=== PATIENT | female | born 1975 | race Two or more races ===

== ENCOUNTER 2017-02-19 01:36 | Emergency (ER) | END 2017-02-19 04:30 | disposition left against medical advice (07) | LOC: M ED 01:36 | DX: Z71.1 Person with feared health complaint in whom no diagnosis is made (principal); Z53.21 Procedure and treatment not carried out due to patient leaving prior to being seen by health care provider ==

== ENCOUNTER 2017-02-22 08:02 | Emergency (ER) | payer BC ==
[~2017-02-22] VITALS: Ht 165.1 cm; Wt 140.9 kg
[2017-02-22] MEDS ORDERED: DULO1CAP2 PO (08:23)
[2017-02-22] MEDS ORDERED: AUGM875T28 PO (08:23)
[2017-02-22] MEDS ORDERED: METO25TA4 PO (08:23)
[2017-02-22] MEDS ORDERED: VITA1TAB27 PO (08:23)
[2017-02-22] MEDS ORDERED: LEVA750T7 PO (09:04)
[2017-02-22 09:11] VITALS: BP 146/97
[2017-02-22] MEDS ORDERED: LevoFLOXacin 750 MG TABLET PO ONE (09:15)
--- NOTE | 2017-02-22 09:17 | REP ---
TWO VIEW CHEST: Two views of the chest are performed without prior studies for comparison. There is fairly dense infiltrate in the right middle lobe. The left lung is clear. Heart is upper limits of normal in size. There are multiple sternal wires present. There are mild degenerative changes of the spine. IMPRESSION: Right middle lobe infiltrate. Signed by Huy Robert MD 02/23/2017 04:21 P
== END 2017-02-22 09:16 | disposition home or self-care (01) ==
LOC: M ED 08:02
DX: J18.1 Lobar pneumonia, unspecified organism (principal); J01.90 Acute sinusitis, unspecified; I10 Essential (primary) hypertension; F41.9 Anxiety disorder, unspecified; Z79.899 Other long term (current) drug therapy; Z88.5 Allergy status to narcotic agent; Z88.2 Allergy status to sulfonamides

== ENCOUNTER 2017-02-25 15:55 | Inpatient (IN) | payer BC ==
[~2017-02-25] VITALS: Ht 165.1 cm; Wt 128.9 kg
[~2017-02-25 15:55] MED LIST: AUGM875T28 PO; DULO1CAP2 PO; LEVA750T7 PO; METO25TA4 PO; VITA1TAB27 PO
[2017-02-25] MEDS ORDERED: MOTR200T44 PO (16:13)
[2017-02-25] MEDS ORDERED: TESS100C PO (16:13)
[2017-02-25] MEDS ORDERED: ALBUTEROL SULFATE 2.5 MG/0.5 ML INH NEB SOLN NEB ONE (16:30)
[2017-02-25] MEDS ORDERED: methylPREDNISolone INJ 125 MG/2 ML VIAL (J2930) IV ONE (16:30)
[2017-02-25] MEDS ORDERED: NS 1,000 ML IV ONE (16:30)
[2017-02-25] MEDS ORDERED: MAGIC MOUTHWASH SUSPENSION BTL SS ONE (16:30)
[2017-02-25 17:27] LABS: BASO % 0.2 % (0.0-1.0); IMMATURE GRANULOCYTE % 0.3 % (0-0); LYMPH # 1.2 10^3/uL (1.5-4.5); MEAN CORPUSCULAR HEMOGLOBIN 30.4 pg (27.0-33.0); MEAN CORPUSCULAR HGB CONC 34.1 g/dl (32.0-36.5); MEAN CORPUSCULAR VOLUME 89.1 fl (80.0-96.0); MONO # 0.3 10^3/uL (0.0-0.8); MONO % 4.7 % (0.0-5.0); NEUTROPHILS # 4.4 10^3/uL (1.8-7.7); NEUTROPHILS % 73.8 % (36.0-66.0); PLATELET COUNT, AUTOMATED 224 10^3/uL (150-450); RED CELL DISTRIBUTION WIDTH 13.3 % (11.5-14.5); WHITE BLOOD COUNT 5.9 10^3/uL (4.0-10.0)
[2017-02-25] MEDS ORDERED: IPRATROPIUM 0.5MG/ALBUTEROL 2.5MG INH SOL UD 3ML (DUONEB)(J7620) NEB ONE (18:00)
--- NOTE | 2017-02-25 18:02 | REP ---
CHEST, TWO VIEWS: Two views of the chest are performed. There is consolidative right middle lobe infiltrate which has worsened since the prior study of 02/22/2017. The left lung remains clear. No other acute changes are seen. IMPRESSION: Increased right middle lobe infiltrate. Unreviewed
[2017-02-25] MEDS ORDERED: PIPERACILLIN/TAZOBACTAM SOD 3.375 GM in D5W 50 ML IV ONE (19:30)
[2017-02-25] MEDS ORDERED: cefTRIAXone SOD 2 GM in D5W 50 ML IV ONE (19:30)
[2017-02-25] MEDS ORDERED: BENZONATATE 100 MG CAP PO ONE (19:45)
[2017-02-25 19:57] LABS: ANION GAP 10 MEQ/L (8-16); BLOOD UREA NITROGEN 6 MG/DL (7-18); CALCIUM LEVEL 7.8 MG/DL (8.5-10.1); CARBON DIOXIDE LEVEL 24 MEQ/L (21-32); CHLORIDE LEVEL 104 MEQ/L (98-107); CREATININE FOR GFR 0.73 MG/DL (0.55-1.02); GLOMERULAR FILTRATION RATE > 60.0 (>58); GLUCOSE, FASTING 127 MG/DL (70-105); SODIUM LEVEL 138 MEQ/L (136-145)
[2017-02-25] MEDS ORDERED: KETOROLAC 30 MG/ML VIAL (J1885) IV ONE (20:00)
[2017-02-25] MEDS ORDERED: ACETAMINOPHEN 325 MG TAB PO ONE (20:00)
[2017-02-25 20:22] LABS: POTASSIUM SERUM 2.9 MEQ/L (3.5-5.1)
[2017-02-25] MEDS ORDERED: DRIS50002 PO (20:24)
[2017-02-25] MEDS ORDERED: LEVA750T7 PO (20:24)
[2017-02-25] MEDS ORDERED: POTASSIUM CHLORIDE INJ 10 MEQ in D5W/0.2% SODIUM CHLORIDE 1,000 ML IV SCH (20:45)
[2017-02-25] MEDS ORDERED: POTASSIUM CHLORIDE 10 MEQ SR TABLET PO ONE (20:45)
[2017-02-25 22:06] LABS: ALBUMIN 3.2 GM/DL (3.2-5.2); ALKALINE PHOSPHATASE 113 U/L (45-117); ALT/SGPT 33 U/L (12-78); AST/SGOT 36 U/L (7-37); BILIRUBIN,DIRECT 0.2 MG/DL (0.0-0.2); BILIRUBIN,TOTAL 0.4 MG/DL (0.2-1.0); MAGNESIUM LEVEL 1.8 MG/DL (1.8-2.4); TOTAL PROTEIN 7.2 GM/DL (6.4-8.2)
[2017-02-25] MEDS ORDERED: ACETAMINOPHEN TAB 650MG DOSE (2X325MG) PO PRN (22:15)
[2017-02-25] MEDS ORDERED: ONDANSETRON 4MG/2ML VIAL (J2405) IV PRN (22:15)
[2017-02-25 22:46] VITALS: BP 121/98
--- NOTE | 2017-02-25 23:45 | HPE ---
DATE OF ADMISSION: 02/25/2017 ATTENDING DOCTOR: Dr. Jones TIME PATIENT WAS SEEN: At around 10:00 p.m. PRIMARY CARE PROVIDER: It was going to be Dr. Chandler; however, she has not seen her yet. Her first visit will be on 03/02/2017. CHIEF COMPLAINT: Fever and chills with nausea, vomiting, diarrhea and shortness of breath, chest pain. HISTORY OF THE PRESENT ILLNESS: A 42-year-old female with a past medical history of chest mass, status post removal of the mass, and it was benign back in June 2016, hypertension with tachycardia after the surgery, severe vitamin D deficiency - on supplement, also morbid obesity, presented with cough with fever and chills, and also nausea, vomiting and diarrhea. As per patient, everything started roughly 1 week ago. She just feels generally not well. She went to urgent care roughly 6 days ago and received Augmentin, and the patient took Augmentin for 2 days, did not get better and she also has nausea, vomiting and diarrhea with it, which she always does with any type of antibiotic. Due to feeling worse, she went to the emergency room this time on Tuesday and the emergency room gave her levofloxacin, and she still did not feel better. And on Tuesday, she went to urgent care and received Tessalon Perles. However, her fever persisted, and she has been taking ibuprofen continuously. She also admits to some chest pain, more on the right side, increased shortness of breath and also nausea, vomiting and diarrhea. The only thing she has been eating for the past few days were bananas, and in addition, she stated that her daughter and her son also were sick recently and developed bronchitis. Otherwise, she admits to increased urination. However, no burning on urination, no blood in the urine. Denies any blood in the vomitus or diarrhea. Admits to some sputum production; however, it was white. Admits to some wheezing and some swelling in her neck. Also, the patient stated that she felt like her throat might be swollen, and she has some sore throat as well. Otherwise, she denies any recent traveling. She is, however, a nurse working at the emergency room. Denies any swelling of the lower extremities. ALLERGIES: Patient is allergic to CODEINE and SULFA ANTIBIOTICS. HOME MEDICATIONS: - Tessalon Perles 100 mg one tablet by mouth three times a day as needed - duloxetine 30 mg one tablet by mouth daily - ibuprofen 800 mg one tablet by mouth as needed - levofloxacin 750 mg one tablet by mouth daily - metoprolol 25 mg one tablet by mouth twice a day - vitamin D 50,000 units one per weekly PAST MEDICAL HISTORY: Morbid obesity. History of benign chest mass, status post removal back in June of 2016. Hypertension with tachycardia. Vitamin D deficiency. Pneumonia with pleural effusion right before the chest mass was found. PAST SURGICAL HISTORY: Chest mass removal back in June of 2016. SOCIAL HISTORY: The patient is an emergency room (ER) nurse. Denies any smoking, drinking or recreational drug use. FAMILY HISTORY: Denies. REVIEW OF SYSTEMS: The patient admits to roughly 10 pounds weight loss over 1 week due to the severe nausea, vomiting and diarrhea with antibiotic. Otherwise, the patient denies any recent traveling. Admits to sick contact. Admits to fever and chills. HEENT: Denies any changes with vision, smell, hearing or taste. CARDIOVASCULAR: Denies any swelling in the lower extremities. Admits to chest pain on the right side and also shortness of breath. Admits to palpitations. PULMONARY: Denies any chronic obstructive pulmonary disease (COPD). However, the patient does have a swollen neck and also a cough and sore throat, and also she heard wheezing from her neck. GASTROINTESTINAL: Denies any abdominal pain. Admits to nausea, vomiting and also diarrhea, nonbloody, nonbilious. GENITOURINARY: Admits to increased urination. Denies any blood in the urine or burning on urination. MUSCULOSKELETAL: Denies any pain anywhere. ENDOCRINE: Admits to feeling hot all the time. Denies any chills. Admits to palpitations and also severe sweating. HEMATOLOGY/ONCOLOGY: Patient does have a history of chest tumor, which was benign. Denies any ease of bruising, any bleeding anywhere. However, the patient does have a weight loss of 10 pounds over 1 week due to nausea, vomiting, diarrhea. NEUROLOGICAL: Denies any weakness on any side of her body, any numbness or tingling. PSYCHIATRIC: Denies any anxiety/depression. The patient, however, does have a history of anxiety, which is controlled. PHYSICAL EXAMINATION: VITAL SIGNS: Temperature 101.4, pulse 101, respirations 18, blood pressure 143/67, oxygen was saturating at 93% on room air. GENERAL: The patient is a morbidly obese middle-aged female who looks younger than her age, who is alert, awake, oriented times three, does not appear to be in distress, lying comfortably in bed with the head elevated at 30 degrees. HEENT: Normocephalic, atraumatic. extraocular motors intact. Mucosal moist. NECK: Supple. The patient does have a swollen neck. Thyroid was not palpable, however. CARDIOVASCULAR: Tachycardic, normal S1, S2. No murmurs. LUNGS: Clear to auscultation bilaterally. ABDOMEN: Positive bowel sounds, soft, nontender, nondistended. No peritoneal signs. No ecchymosis. EXTREMITIES: No edema, clubbing or cyanosis. SKIN: Warm and dry. NEUROLOGICAL: Cranial nerves II-XII intact. No focal neurologic deficit. LABORATORY DATA: WBC 5.9, hemoglobin 13.7, hematocrit 40.3 with a platelet count of 224. Sodium 138, potassium 2.9, chloride 104, bicarbonate 24, anion gap was 10, BUN 6 , creatinine 0.73, GFR greater than 60, fasting glucose 127, lactic acid 1.1, calcium 7.8. Liver panel is currently pending. Magnesium is pending. The patient has blood culture ordered times two, result pending. Influenza screening was negative for influenza. Patient had a PA and lateral chest x-ray in the emergency room; it shows increased right middle lobe infiltrate. ASSESSMENT AND PLAN: A 42-year-old female with a past medical history of morbid obesity, chest mass which was benign, hypertension, tachycardic, vitamin D deficiency, presented with: 1. Increased shortness of breath with chest pain. Likely secondary to community-acquired pneumonia that has failed outpatient therapy. Patient's PA and lateral chest x-ray shows a right middle lobe infiltrate. The patient did receive Augmentin and levofloxacin outpatient, and the patient stated that she has increased nausea, vomiting, diarrhea from antibiotic. Therefore, possibly she has a poor absorption from the diarrhea, therefore, which could have delayed her recovery. Otherwise, will continue the patient on Rocephin 2 mg IV every 24 hours as well as azithromycin 500 mg IV every 24 hours and continue to monitor the patient. The patient has been started on Acapella, also a small dose of IV steroid, Solu-Medrol 60 mg every 12 hours due to patient had wheezing and a swollen neck. 2. Morbid obesity. Continue to monitor, which complicates care. 3. Swollen neck. Possibly related to her illness, possibly viral superimposed on bacterial pneumonia. In addition, this could represent an allergic reaction from her oral antibiotic as well. However, at this point, we could not confirm if she does have allergy due to she has no rash and the oral antibiotic has been stopped. 4. Hypokalemia with a potassium of 2.9. Continue supplementation with both IV and oral potassium. The patient did receive oral potassium 40 mEq in the emergency room as well as IV potassium. Will continue to monitor and will start the patient on 20 mEq of potassium in normal saline drip and continue to monitor. 5. Hot flashes for 1 year with palpitations and severe sweating. Suspicious for thyroid disorder versus pheochromocytoma. Thyroid-stimulating hormone (TSH) has been ordered, metanephrine plasma has been ordered and will followup. 6. History of benign chest mass. Status post resection in June 2016. Currently no issues. Continue to monitor. 7. Hypertension. The patient is only on metoprolol at home. Possibly will start the patient on amlodipine. Will continue to monitor closely for now. 8. History of anxiety. Continue home duloxetine and continue to monitor. 9. Vitamin D deficiency. Continue supplementation. 10. Deep vein thrombosis (DVT) prophylaxis with thromboembolism deterrents (TEDs ) and sequential compression devices (SCDs), as well as subcutaneous heparin. 11. Fluids, electrolytes and nutrition. Patient has been started on K 20 D5 half normal at a rate of 80 mL per hour due to patient has nausea and has poor oral tolerance. Will start the patient on a clear liquid diet and continue to monitor the patient's electrolytes with a morning basic metabolic panel. DISPOSITION: The patient does have community-acquired pneumonia, failed outpatient treatment with Augmentin and levofloxacin. The patient did receive Rocephin, also azithromycin in the emergency room. At this point, due to the patient's delayed recovery, likely secondary to severe diarrhea for the past 1 week, will start the patient with Rocephin and azithromycin at this point and continue to monitor the patient symptomatically. The patient does not have a white count when she first came in and she did have a fever, and also she had a negative lactic acid of only 1.1. Will continue to monitor the patient. The patient has been discussed with attending doctor, Dr. Jones. My preceptor for this patient encounter was Dr. Jones. The preceptor was physically present in the building during the encounter and was fully available. As needed, all aspects of the patient interview, examination, medical decision making process, and medical care plan development were reviewed and approved by the preceptor. The preceptor is aware and concurs with the plan as stated in the body of this note and will attest to such by his/her co-signature. Attending Note: I have independently examined this patient and all aspects of the exam and treatment decisions have been discussed with the resident. A member of the hospitalist staff will continue to follow this patient through discharge. GOOD
[2017-02-25] MEDS: METOPROLOL TART 25 MG TABLET PO SCH (23:52)
[2017-02-25] MEDS: HEPARIN SOD (PORCINE) 5000 UNITS/ML VIAL SC SCH (23:53)
[2017-02-25] MEDS: AZITHROMYCIN INJ 500 MG, VIAL MATE ADAPTER 1 EACH in D5W 250 ML IV SCH (23:53)
[2017-02-25] MEDS: KCL 20MEQ IN D5/0.45NS 1000ML 1,000 ML IV SCH (23:54)
[2017-02-26] MEDS ORDERED: methylPREDNISolone INJ 125 MG/2 ML VIAL (J2930) IV SCH (05:00)
[2017-02-26] MEDS: HEPARIN SOD (PORCINE) 5000 UNITS/ML VIAL SC SCH ×3 (05:12→21:37)
[2017-02-26 06:00] VITALS: BP 142/97
[2017-02-26 06:53] LABS: IMMATURE GRANULOCYTE % 0.5 % (0-0); LYMPH # 0.6 10^3/uL (1.5-4.5); LYMPH % 14.7 % (24.0-44.0); MEAN CORPUSCULAR HEMOGLOBIN 30.6 pg (27.0-33.0); MEAN CORPUSCULAR HGB CONC 34.5 g/dl (32.0-36.5); MEAN CORPUSCULAR VOLUME 88.7 fl (80.0-96.0); MONO # 0.1 10^3/uL (0.0-0.8); MONO % 2.2 % (0.0-5.0); NEUTROPHILS # 3.4 10^3/uL (1.8-7.7); NEUTROPHILS % 82.6 % (36.0-66.0); PLATELET COUNT, AUTOMATED 221 10^3/uL (150-450); RED CELL DISTRIBUTION WIDTH 13.2 % (11.5-14.5); WHITE BLOOD COUNT 4.1 10^3/uL (4.0-10.0)
[2017-02-26 07:12] LABS: ANION GAP 6 MEQ/L (8-16); BLOOD UREA NITROGEN 6 MG/DL (7-18); CARBON DIOXIDE LEVEL 27 MEQ/L (21-32); CHLORIDE LEVEL 105 MEQ/L (98-107); CREATININE FOR GFR 0.61 MG/DL (0.55-1.02); GLOMERULAR FILTRATION RATE > 60.0 (>58); GLUCOSE, FASTING 169 MG/DL (70-105); MAGNESIUM LEVEL 2.1 MG/DL (1.8-2.4); POTASSIUM SERUM 3.3 MEQ/L (3.5-5.1); SODIUM LEVEL 138 MEQ/L (136-145)
[2017-02-26] MEDS ORDERED: POTASSIUM CHLORIDE 10 MEQ SR TABLET PO ONE (08:00)
[2017-02-26] MEDS: DULoxetine 30 MG CAP (CYMBALTA) PO SCH (08:39)
[2017-02-26] MEDS: METOPROLOL TART 25 MG TABLET PO SCH ×2 (08:43→20:27)
[2017-02-26] MEDS: KCL 20MEQ IN D5/0.45NS 1000ML 1,000 ML IV SCH (11:57)
[2017-02-26 14:00] VITALS: BP 154/94
--- NOTE | 2017-02-26 15:12 | IPNPDOC ---
Text Note Date of Service The patient was seen on 02/26/17. NOTE Subjective: Patient is a 42 year old female with a PMHx of Chest benign mass s/p resection (06/2016), HTN, Morbid obesity and Vitamin D deficiency who presented to the ER with a cough and fever with chills for 1 week duration. Patient failed to improve with Augmentin PO as an outpatient. She was admitted for CAP. Patient was seen and examined at the bedside. Currently she notes that there is some mild chest pain with coughing, described as sharp. Objective: Vitals (See below) General: Lying in bed, no acute distress, comfortable, AAOx3 HEENT: NC, AT CVS: RRR, +S1S2 Lungs: Fair air entry b/l, no appreciable wheezing / rales / rhonchi Abdomen: Soft, ND, NT Extremities: - Edema, - Calf tenderness Assessment and plan: Dyspnea - likely 2/2 community acquired pneumonia, less likely 2/2 suspected COPD - Presented with SOB, productive cough, fever and chills - Physical without any significant findings - Labs without leukocytosis or lactic acidosis - Influenza negative; Blood cultures 02/05: pending, Sputum cultures 02/26: pending - CXR 02/25: increased right middle lobe infiltrate - Currently on Solumedrol 60 IV q12h; will taper down today - c/w Ceftriaxone and Azithromycin (Day #2) Chest pain - likely 2/2 pleuritic etiology - Atypical chest pain, pleuritic description - Troponin negative Morbid obesity - complicating medical care Reported swollen neck - no evidence of physical this morning - no evidence of stridor Hypokalemia - c/w supplement Hot flashes - Thyroid function normal - Workup for pheochromocytoma pending; Plasma metanephrine and Normetanephrine pending Benign chest mass - s/p resection 06/2016 HTN - BP moderately controlled - c/w Metoprolol tartrate Anxiety - c/w Duloxetine Vitamin D deficiency - c/w Supplement DVT prophylaxis - c/w SCDs and Heparin VS,Fishbone, I+O VS, Fishbone, I+O Laboratory Tests 02/25/17 17:01 Red Blood Count 4.51, Mean Corpuscular Volume 89.1, Mean Corpuscular Hemoglobin 30.4, Mean Corpuscular Hemoglobin Concent 34.1, Red Cell Distribution Width 13.3 , Neutrophils (%) (Auto) 73.8 H, Lymphocytes (%) (Auto) 21.0 L, Monocytes (%) ( Auto) 4.7, Eosinophils (%) (Auto) 0.0, Basophils (%) (Auto) 0.2, Neutrophils # ( Auto) 4.4, Lymphocytes # (Auto) 1.2 L, Monocytes # (Auto) 0.3, Eosinophils # ( Auto) 0.0, Basophils # (Auto) 0.0 02/25/17 19:30 Calcium Level 7.8 L 02/26/17 06:36 Red Blood Count 4.08, Mean Corpuscular Volume 88.7, Mean Corpuscular Hemoglobin 30.6, Mean Corpuscular Hemoglobin Concent 34.5, Red Cell Distribution Width 13.2 , Neutrophils (%) (Auto) 82.6 H, Lymphocytes (%) (Auto) 14.7 L, Monocytes (%) ( Auto) 2.2, Eosinophils (%) (Auto) 0.0, Basophils (%) (Auto) 0.0, Neutrophils # ( Auto) 3.4, Lymphocytes # (Auto) 0.6 L, Monocytes # (Auto) 0.1, Eosinophils # ( Auto) 0.0, Basophils # (Auto) 0.0, Calcium Level 8.0 L Vital Signs Date Time Temp Pulse Resp B/P (MAP) Pulse Ox O2 Delivery O2 Flow Rate FiO2 02/26/17 08:43 85 173/90 02/26/17 06:00 98.2 23 85 Room Air I&O- Last 24 Hours up to 6 AM 02/27/17 06:00 Intake Total 720 ml Balance 720 ml CY QUINONES MD Feb 26, 2017 15:12
[2017-02-26] MEDS: methylPREDNISolone INJ 40 MG/1 ML VIAL (J2920) IV SCH (16:28)
[2017-02-26] MEDS: cefTRIAXone SOD 2 GM in D5W 50 ML IV SCH (20:27)
[2017-02-26] MEDS: AZITHROMYCIN INJ 500 MG, VIAL MATE ADAPTER 1 EACH in D5W 250 ML IV SCH (21:36)
[2017-02-26] MEDS: BENZONATATE 100 MG CAP PO PRN (21:36)
[2017-02-26 22:00] VITALS: BP 138/68
[2017-02-26] MEDS ORDERED: ALBUTEROL SULFATE 2.5 MG/0.5 ML INH NEB SOLN NEB PRN (23:30)
[2017-02-26] MEDS: IPRATROPIUM 0.5MG/ALBUTEROL 2.5MG INH SOL UD 3ML (DUONEB)(J7620) NEB SCH (23:58)
[2017-02-27] MEDS: KCL 20MEQ IN D5/0.45NS 1000ML 1,000 ML IV SCH (00:36)
[2017-02-27] MEDS: methylPREDNISolone INJ 40 MG/1 ML VIAL (J2920) IV SCH (05:10)
[2017-02-27] MEDS: HEPARIN SOD (PORCINE) 5000 UNITS/ML VIAL SC SCH ×3 (05:11→22:18)
[2017-02-27 06:00] VITALS: BP 138/86
[2017-02-27 06:44] LABS: IMMATURE GRANULOCYTE % 0.3 % (0-0); LYMPH # 1.2 10^3/uL (1.5-4.5); LYMPH % 15.8 % (24.0-44.0); MEAN CORPUSCULAR HEMOGLOBIN 30.4 pg (27.0-33.0); MEAN CORPUSCULAR HGB CONC 33.7 g/dl (32.0-36.5); MEAN CORPUSCULAR VOLUME 90.3 fl (80.0-96.0); MONO # 0.7 10^3/uL (0.0-0.8); MONO % 10.1 % (0.0-5.0); NEUTROPHILS # 5.4 10^3/uL (1.8-7.7); NEUTROPHILS % 73.8 % (36.0-66.0); PLATELET COUNT, AUTOMATED 252 10^3/uL (150-450); RED CELL DISTRIBUTION WIDTH 13.2 % (11.5-14.5); WHITE BLOOD COUNT 7.3 10^3/uL (4.0-10.0)
[2017-02-27 07:07] LABS: ANION GAP 7 MEQ/L (8-16); BLOOD UREA NITROGEN 7 MG/DL (7-18); CALCIUM LEVEL 8.1 MG/DL (8.5-10.1); CARBON DIOXIDE LEVEL 28 MEQ/L (21-32); CHLORIDE LEVEL 106 MEQ/L (98-107); CREATININE FOR GFR 0.58 MG/DL (0.55-1.02); GLOMERULAR FILTRATION RATE > 60.0 (>58); GLUCOSE, FASTING 158 MG/DL (70-105); MAGNESIUM LEVEL 2.1 MG/DL (1.8-2.4); POTASSIUM SERUM 3.4 MEQ/L (3.5-5.1); SODIUM LEVEL 141 MEQ/L (136-145)
[2017-02-27] MEDS: IPRATROPIUM 0.5MG/ALBUTEROL 2.5MG INH SOL UD 3ML (DUONEB)(J7620) NEB SCH ×4 (07:53→20:00)
[2017-02-27] MEDS ORDERED: POTASSIUM CHLORIDE 10 MEQ SR TABLET PO ONE (08:00)
[2017-02-27] MEDS: METOPROLOL TART 25 MG TABLET PO SCH ×2 (08:12→21:09)
[2017-02-27] MEDS: DULoxetine 30 MG CAP (CYMBALTA) PO SCH (08:12)
[2017-02-27] MEDS ORDERED: ISOVUE-370 76% 100ML VIAL (Q9967) As Ordered ONE (08:47)
[2017-02-27] MEDS: BENZONATATE 100 MG CAP PO PRN ×2 (09:35→21:09)
--- NOTE | 2017-02-27 12:30 | IPNPDOC ---
Text Note Date of Service The patient was seen on 02/27/17. NOTE Subjective: Patient is a 42 year old female with a PMHx of Chest benign mass s/p resection (06/2016), HTN, Morbid obesity and Vitamin D deficiency who presented to the ER with a cough and fever with chills for 1 week duration. Patient failed to improve with Augmentin PO as an outpatient. She was admitted for CAP. Patient was seen and examined at the bedside. Currently she notes that she is feeling fine, without any breathing difficulty. Denies any productive cough or fever. Objective: Vitals (See below) General: Lying in bed, no acute distress, comfortable, AAOx3 HEENT: NC, AT CVS: RRR, +S1S2 Lungs: Fair air entry b/l, no appreciable wheezing / rales / rhonchi Abdomen: Soft, ND, NT Extremities: - Edema, - Calf tenderness Assessment and plan: Dyspnea - likely 2/2 community acquired pneumonia, less likely 2/2 suspected COPD - Presented with SOB, productive cough, fever and chills - Physical without any significant findings - Labs without leukocytosis or lactic acidosis - Influenza negative; Blood cultures 02/05: negative at 24 hours , Sputum cultures 02/26: pending - CXR 02/25: increased right middle lobe infiltrate - Will start Prednisone today; s/p Solumedrol - c/w Ceftriaxone and Azithromycin (Day #3) Noted some neck thickening and possible difficulty getting air in - no signs of respiratory compromise - saturating well without any evidence of stridor - Will get CT Neck with contrast to evaluate Chest pain - likely 2/2 pleuritic etiology - Atypical chest pain, pleuritic description - Troponin negative Morbid obesity - complicating medical care Reported swollen neck - no evidence of physical this morning - no evidence of stridor Hypokalemia - c/w supplement Hot flashes - Thyroid function normal - Workup for pheochromocytoma pending; Plasma metanephrine and Normetanephrine pending Benign chest mass - s/p resection 06/2016 HTN - BP moderately controlled - c/w Metoprolol tartrate Anxiety - c/w Duloxetine Vitamin D deficiency - c/w Supplement DVT prophylaxis - c/w SCDs and Heparin VS,Fishbone, I+O VS, Fishbone, I+O Laboratory Tests 02/27/17 06:30 Red Blood Count 4.11, Mean Corpuscular Volume 90.3, Mean Corpuscular Hemoglobin 30.4, Mean Corpuscular Hemoglobin Concent 33.7, Red Cell Distribution Width 13.2 , Neutrophils (%) (Auto) 73.8 H, Lymphocytes (%) (Auto) 15.8 L, Monocytes (%) ( Auto) 10.1 H, Eosinophils (%) (Auto) 0.0, Basophils (%) (Auto) 0.0, Neutrophils # (Auto) 5.4, Lymphocytes # (Auto) 1.2 L, Monocytes # (Auto) 0.7, Eosinophils # (Auto) 0.0, Basophils # (Auto) 0.0, Calcium Level 8.1 L Vital Signs Date Time Temp Pulse Resp B/P (MAP) Pulse Ox O2 Delivery O2 Flow Rate FiO2 02/27/17 08:12 79 138/86 02/27/17 08:00 Room Air 02/27/17 06:00 98.4 18 95 I&O- Last 24 Hours up to 6 AM 02/28/17 06:00 Intake Total 540 ml Balance 540 ml CY QUINONES MD Feb 27, 2017 12:30
[2017-02-27 14:00] VITALS: BP 143/84
--- NOTE | 2017-02-27 14:31 | REP ---
CT neck with IV contrast: History: Soft tissue swelling below the chin. CT contrast dose: 75 ml of intravenous Isovue 370. Findings: There is a 2.4 cm mucous retention cyst along the floor of the left maxillary sinus. Otherwise, the paranasal sinuses are clear as visualized. No intraorbital lesion is seen. Parotid and submandibular glands are normal and symmetric. Thyroid lobes are unremarkable. There is no evidence of infrahyoid or suprahyoid neck adenopathy. No cyst or mass is seen. No vascular abnormality is observed. Deep facial soft tissues are unremarkable. Tonsillar and peritonsillar soft tissues are normal. No glottic or subglottic airway lesion is seen. The lung apices are clear. No bony destructive lesion. The bottom most cut shows what appears to be a sternotomy wire. Impression: 2.4 cm mucous retention cyst in the floor the left maxillary sinus. Otherwise unremarkable CT of the neck soft tissues. No evidence of abscess, inflammation, mass or adenopathy. Signed by Mika Ahumada MD 02/27/2017 10:49 A
[2017-02-27] MEDS: predniSONE 20 MG TAB PO SCH (21:09)
[2017-02-27] MEDS: cefTRIAXone SOD 2 GM in D5W 50 ML IV SCH (21:10)
[2017-02-27 22:00] VITALS: BP 152/80
[2017-02-27] MEDS: AZITHROMYCIN INJ 500 MG, VIAL MATE ADAPTER 1 EACH in D5W 250 ML IV SCH (22:17)
[2017-02-28 06:00] VITALS: BP 148/52
[2017-02-28] MEDS: HEPARIN SOD (PORCINE) 5000 UNITS/ML VIAL SC SCH (06:19)
[2017-02-28 06:43] LABS: MEAN CORPUSCULAR HEMOGLOBIN 30.2 pg (27.0-33.0); MEAN CORPUSCULAR HGB CONC 33.9 g/dl (32.0-36.5); MEAN CORPUSCULAR VOLUME 89.3 fl (80.0-96.0); PLATELET COUNT, AUTOMATED 245 10^3/uL (150-450); RED CELL DISTRIBUTION WIDTH 13.3 % (11.5-14.5)
[2017-02-28 06:46] LABS: ADD MANUAL DIFFER YES; DIFF SLIDE NUMBER 33; POSITIVE MORPH POS FLAG
[2017-02-28 07:02] LABS: ANION GAP 6 MEQ/L (8-16); BLOOD UREA NITROGEN 7 MG/DL (7-18); CALCIUM LEVEL 8.3 MG/DL (8.5-10.1); CARBON DIOXIDE LEVEL 31 MEQ/L (21-32); CHLORIDE LEVEL 104 MEQ/L (98-107); CREATININE FOR GFR 0.57 MG/DL (0.55-1.02); GLOMERULAR FILTRATION RATE > 60.0 (>58); GLUCOSE, FASTING 126 MG/DL (70-105); HYPOCHROMASIA 1+; MAGNESIUM LEVEL 2.3 MG/DL (1.8-2.4); POTASSIUM SERUM 3.6 MEQ/L (3.5-5.1); SODIUM LEVEL 141 MEQ/L (136-145)
[2017-02-28] MEDS: IPRATROPIUM 0.5MG/ALBUTEROL 2.5MG INH SOL UD 3ML (DUONEB)(J7620) NEB SCH (07:25)
[2017-02-28] MEDS: BENZONATATE 100 MG CAP PO PRN (07:36)
[2017-02-28] MEDS: DULoxetine 30 MG CAP (CYMBALTA) PO SCH (08:39)
[2017-02-28] MEDS: predniSONE 20 MG TAB PO SCH (08:40)
[2017-02-28 08:41] VITALS: BP 160/98
[2017-02-28] MEDS: METOPROLOL TART 25 MG TABLET PO SCH (08:41)
[2017-02-28 08:48] VITALS: BP 160/98
[2017-02-28] MEDS ORDERED: AZIT500T2 PO (10:02)
[2017-02-28] MEDS ORDERED: PRED10TA2 PO (10:02)
[2017-02-28] MEDS ORDERED: CEFD1CAP8 PO (10:02)
[2017-03-01] MEDS ORDERED: VITAMIN D 50,000 UNITS CAPSULE (ERGOCALCIFEROL 1.25MG) PO SCH (09:00)
--- NOTE | 2017-03-01 09:01 | DSES ---
DATE OF ADMISSION: 02/25/2017 DATE OF DISCHARGE: 02/28/2017 ATTENDING PHYSICIAN: Fab Wynne MD PRIMARY CARE PHYSICIAN: [facility], to be established on 03/02/2017. REFERRING PHYSICIAN: None. CONSULTING PHYSICIAN: None. CONDITION ON DISCHARGE: Stable. FINAL DIAGNOSIS: Community acquired pneumonia. PROCEDURES: None. HISTORY OF PRESENT ILLNESS: The patient is a 42-year-old female with a past medical history of benign chest mass status post resection in June 2016 , hypertension, morbid obesity, and vitamin D deficiency, who presented to the emergency room (ER) with a cough and fever and chills for 1-week duration. Patient failed to improve with Augmentin by mouth as an outpatient. She was admitted for community acquired pneumonia. HOSPITAL COURSE: 1. Dyspnea, likely secondary to community acquired pneumonia, less likely secondary to chronic obstructive pulmonary disease (COPD). Presented with shortness of breath, productive cough, fever, and chills. Physical without any significant changes. Labs without leukocytosis or lactic acidosis, Blood cultures of 02/05/2017 have been negative after 48 hours. Sputum cultures on 02/26/2017 remain pending. Chest x-ray on 02/25/2017 revealed an increased right middle lobe infiltrate. Patient was put on Solu-Medrol initially and has been transitioned to prednisone. She has been doing well on prednisone. I will continue on a tapering basis. She has been put on ceftriaxone and azithromycin for 3 days' duration. She will be transitioned to cefdinir as well as azithromycin for completion of antibiotic course. 2. Noted some neck thickening and possible difficulty getting in air; however, with subjective no signs of respiratory compromise. Physical did not reveal any signs of stridor. CT neck was acquired, which did not reveal any signs of respiratory compromise. CT neck on 02/27/2017 revealed 2.4 cm mucus retention cyst in the floor of the left maxillary sinus. Otherwise, unremarkable CT scan of the neck soft tissues. No evidence of abscess, inflammation, mass, or adenopathy. 3. Chest pain, likely secondary to pleuritic etiology, atypical chest pain, pleuritic description. Troponin has been negative. 4. Morbid obesity, complicating medical care. 5. Reported neck swelling. See above. 6. Hypokalemia. Status post supplementation. 7. Hot flashes. Thyroid function has been within normal limits. Workup for pheochromocytoma has remained pending, will have outpatient followup 8. Benign chest mass status post resection in June 2016. 9. Hypertension. Blood pressure moderately controlled. Continue with metoprolol tartrate. 10. Anxiety. Continue with duloxetine. 11. Vitamin D deficiency. Continue with supplementation. 12. Deep venous thrombosis (DVT) prophylaxis. Continue with sleeve compression devices and heparin. DISCHARGE MEDICATION: Patient is being discharged home with the following medication list: - azithromycin 500 mg by mouth daily - cefdinir 300 mg by mouth twice a day (Antibiotics to be taken on duration as directed.) - prednisone 10 mg to be taken as directed on tapering basis - Tessalon Perles 100 mg by mouth three times a day as needed cough - duloxetine 30 mg by mouth daily - metoprolol 25 mg by mouth twice a day - vitamin D 30,000 units by mouth once a week DISCHARGE INSTRUCTIONS: Patient has been advised to followup with her primary care provider within the next 7 days. She has been advised to remain compliant with treatment plan and medications and return to the emergency room if she experiences any problems. TIME SPENT ON DISCHARGE: Greater than 35 minutes. MTDD
== END 2017-02-28 11:00 | disposition home or self-care (01) | DRG 139 ==
LOC: M ED 15:55 → M ED INP 20:45 → M MS5PR 22:32
PROVIDERS: ADMIT Hospitalist; ATTEND Internal Medicine
DX: J15.9 Unspecified bacterial pneumonia (principal); Z68.42 Body mass index [BMI] 45.0-49.9, adult; I10 Essential (primary) hypertension; E66.01 Morbid (severe) obesity due to excess calories; E87.6 Hypokalemia; Z88.5 Allergy status to narcotic agent; Z88.2 Allergy status to sulfonamides; Z79.899 Other long term (current) drug therapy; F41.9 Anxiety disorder, unspecified

== ENCOUNTER → 2017-04-06 | Outpatient (REF) | payer BC ==
[~2017-04-06] MED LIST changes: +AZIT500T2 PO; +CEFD1CAP8 PO; +DRIS50002 PO; +MOTR200T44 PO; +PRED10TA2 PO; +TESS100C PO
[2017-04-06 13:44] LABS: ALBUMIN 3.5 GM/DL (3.2-5.2); ALBUMIN/GLOBULIN RATIO 0.92 (1.00-1.93); ALKALINE PHOSPHATASE 121 U/L (45-117); ALT/SGPT 31 U/L (12-78); ANION GAP 8 MEQ/L (8-16); AST/SGOT 16 U/L (7-37); BILIRUBIN,TOTAL 0.5 MG/DL (0.2-1.0); BLOOD UREA NITROGEN 12 MG/DL (7-18); CALCIUM LEVEL 8.6 MG/DL (8.5-10.1); CARBON DIOXIDE LEVEL 30 MEQ/L (21-32); CHLORIDE LEVEL 104 MEQ/L (98-107); CREATININE FOR GFR 0.78 MG/DL (0.55-1.02); GLOMERULAR FILTRATION RATE > 60.0 (>58); GLUCOSE, FASTING 78 MG/DL (70-105); POTASSIUM SERUM 4.3 MEQ/L (3.5-5.1); SODIUM LEVEL 142 MEQ/L (136-145); TOTAL PROTEIN 7.3 GM/DL (6.4-8.2)
== END ==
LOC: M SFHCADAM 07:35
PROVIDERS: ATTEND Family Medicine
DX: R73.01 Impaired fasting glucose (principal)

== ENCOUNTER → 2018-02-06 | Outpatient (REF) | payer BC | LOC: M LAB REF 18:14 | DX: D23.39 Other benign neoplasm of skin of other parts of face (principal) | CPT/HCPCS: 88305 ==

== ENCOUNTER → 2018-03-03 | Outpatient (REF) | payer BC ==
[2018-03-03 19:42] LABS: ALBUMIN 3.6 GM/DL (3.2-5.2); ALBUMIN/GLOBULIN RATIO 1.03 (1.00-1.93); ALKALINE PHOSPHATASE 112 U/L (45-117); ALT/SGPT 35 U/L (12-78); ANION GAP 6 MEQ/L (8-16); AST/SGOT 18 U/L (7-37); BILIRUBIN,TOTAL 0.4 MG/DL (0.2-1.0); BLOOD UREA NITROGEN 16 MG/DL (7-18); CALCIUM LEVEL 9.1 MG/DL (8.5-10.1); CARBON DIOXIDE LEVEL 29 MEQ/L (21-32); CHLORIDE LEVEL 103 MEQ/L (98-107); CREATININE FOR GFR 0.79 MG/DL (0.55-1.30); GLOMERULAR FILTRATION RATE > 60.0 (>58); GLUCOSE, FASTING 102 MG/DL (70-100); POTASSIUM SERUM 4.4 MEQ/L (3.5-5.1); SODIUM LEVEL 138 MEQ/L (136-145); TOTAL PROTEIN 7.1 GM/DL (6.4-8.2)
== END ==
LOC: M LABDRWAD 19:12
DX: M54.5 Low back pain (principal)
CPT/HCPCS: 80053

== ENCOUNTER → 2018-03-03 | Outpatient (CLI) | payer BC | LOC: M ADAMS 16:22 | DX: M54.5 Low back pain (principal) | CPT/HCPCS: 72100 ==

== ENCOUNTER 2018-03-30 07:36 | Outpatient (RCR) | payer BC | END 2018-03-31 | LOC: M PT 07:36 | DX: M54.5 Low back pain (principal) ==

== ENCOUNTER → 2018-08-08 | Outpatient (CLI) | payer BC, OTHER ==
[~2018-08-08] MED LIST changes: -DRIS50002 PO; +DRIS50003 PO
--- NOTE | 2018-08-09 03:33 | REP ---
Clinical: Right shoulder contusion . Technique: Internal rotation, external rotation, and Y view right shoulder . Findings: No acute fracture or dislocation. Mild spurring and cortical irregularity at the acromioclavicular joint is appreciated. The subacromial space is normal. The glenohumeral joint appears intact and normal. No periarticular calcifications. Surrounding soft tissues are unremarkable. Impression: Mild degenerative changes at the acromioclavicular joint. Electronically Signed by Be Sam MD 08/09/2018 03:24 A
== END ==
LOC: M ADAMS 12:54
PROVIDERS: ATTEND Physician Assistant Medical
DX: S40.011A Contusion of right shoulder, initial encounter (principal); X58.XXXA Exposure to other specified factors, initial encounter; Y92.89 Other specified places as the place of occurrence of the external cause

== ENCOUNTER 2018-09-01 23:07 | Emergency (ER) | payer BC, OTHER ==
[~2018-09-01] VITALS: Ht 165.1 cm; Wt 131.8 kg
[2018-09-01] MEDS ORDERED: AMOX500C PO (23:32)
[2018-09-02 00:09] LABS: BASO % 0.4 % (0.0-1.0); EOS # 0.2 10^3/uL (0.0-0.50); EOS % 2.2 % (0.0-3.0); HEMATOCRIT 42.4 % (36.0-47.0); HEMOGLOBIN 14.1 g/dl (12.0-15.5); LYMPH % 42.5 % (24.0-44.0); MEAN CORPUSCULAR HEMOGLOBIN 30.3 pg (27.0-33.0); MEAN CORPUSCULAR HGB CONC 33.3 g/dl (32.0-36.5); MEAN CORPUSCULAR VOLUME 91.2 fl (80.0-96.0); MONO # 0.6 10^3/uL (0.0-0.8); MONO % 6.8 % (0.0-5.0); NEUTROPHILS # 4.5 10^3/uL (1.8-7.7); NEUTROPHILS % 47.8 % (36.0-66.0); PLATELET COUNT, AUTOMATED 300 10^3/uL (150-450); RED BLOOD COUNT 4.65 10^6/uL (4.00-5.40); WHITE BLOOD COUNT 9.5 10^3/uL (4.0-10.0)
[2018-09-02 00:26] LABS: BLOOD UREA NITROGEN 21 MG/DL (7-18); CALCIUM LEVEL 8.6 MG/DL (8.5-10.1); CARBON DIOXIDE LEVEL 29 MEQ/L (21-32); CHLORIDE LEVEL 103 MEQ/L (98-107); CREATININE FOR GFR 0.91 MG/DL (0.55-1.30); GLOMERULAR FILTRATION RATE > 60.0 (>58); GLUCOSE, FASTING 86 MG/DL (70-100); POTASSIUM SERUM 4.2 MEQ/L (3.5-5.1); SODIUM LEVEL 138 MEQ/L (136-145)
[2018-09-02] MEDS ORDERED: ISOVUE-370 76% 100ML VIAL (Q9967) As Ordered ONE (03:26)
--- NOTE | 2018-09-02 04:25 | REPVR ---
EXAM: CT Angiography Chest With Contrast EXAM DATE/TIME: 09/02/2018 3:17 AM CLINICAL HISTORY: 43 years old, female; Pain and signs and symptoms; Cough; Chest pain; Type not specified; Additional info: Chest pain, SOB, cough TECHNIQUE: Imaging protocol: Axial computed tomographic angiography images of the chest with intravenous contrast using CT angiography protocol. Coronal and sagittal reformatted images were created and reviewed. 3D rendering: MIP reconstructed images were created and reviewed. Radiation optimization: All CT scans at this facility use at least one of these dose optimization techniques: automated exposure control; mA and/or kV adjustment per patient size (includes targeted exams where dose is matched to clinical indication); or iterative reconstruction. Contrast material: ISO; Contrast volume: 75 ml; Contrast route: AC; COMPARISON: CR Chest, 2 view PA, Lat 09/01/2018 11:47 PM FINDINGS: Pulmonary arteries: The main pulmonary artery measures 22 mm. No pulmonary embolism is identified. Aorta: The ascending thoracic aorta measures 27 mm. Lungs: Minimal bilateral lower lobe dependent atelectasis. Pleural space: Normal. No pneumothorax. No pleural effusion. Heart: Normal. No cardiomegaly. No pericardial effusion. Lymph nodes: Unremarkable. No enlarged lymph nodes. Bones/joints: Status post sternotomy. Soft tissues: Unremarkable. IMPRESSION: 1. Status post sternotomy. 2. Negative CTA chest. No pulmonary embolism is identified. Electronically signed by: True Self On 09/02/2018 04:25:14 AM
[2018-09-02 04:58] VITALS: BP 123/56
--- NOTE | 2018-09-02 14:25 | REP ---
CHEST, TWO VIEWS: Two views of the chest are performed and compared to a prior study of 02/25/2017. Multiple sternal wires are present. I see no acute infiltrate. Heart is not significantly enlarged. Mediastinal silhouette is unremarkable. There are mild degenerative changes of the spine. IMPRESSION: No acute pulmonary disease. Electronically Signed by Huy Robert MD 09/02/2018 03:56 P
== END 2018-09-02 06:43 | disposition home or self-care (01) ==
LOC: M ED 23:07
DX: R05 Cough (principal); I10 Essential (primary) hypertension; M54.5 Low back pain; Z88.2 Allergy status to sulfonamides; Z88.5 Allergy status to narcotic agent; Z79.899 Other long term (current) drug therapy; Z79.2 Long term (current) use of antibiotics
CPT/HCPCS: 36415; 71046; 71275; 80048; 85025; 87040; 87486; 87581; 87633; 87798; 99284; Q9967

== ENCOUNTER → 2019-01-23 | Outpatient (REF) | payer BC ==
[~2019-01-23] MED LIST changes: +AMOX500C PO; -DULO1CAP2 PO; +DULO1CAP5 PO
[2019-01-23 19:23] LABS: ALBUMIN 3.4 GM/DL (3.2-5.2); ALT/SGPT 20 U/L (12-78); BILIRUBIN,TOTAL 0.5 MG/DL (0.2-1.0); BLOOD UREA NITROGEN 14 MG/DL (7-18); CALCIUM LEVEL 8.6 MG/DL (8.5-10.1); CARBON DIOXIDE LEVEL 27 MEQ/L (21-32); CHLORIDE LEVEL 102 MEQ/L (98-107); CHOLESTEROL LEVEL 163 MG/DL (<200); CHOLESTEROL RISK RATIO 3.975 (<5); CREATININE FOR GFR 0.84 MG/DL (0.55-1.30); GLOMERULAR FILTRATION RATE > 60.0 (>58); GLUCOSE, FASTING 82 MG/DL (70-100); HDL CHOLESTEROL 41 MG/DL (>40); LDL CHOLESTEROL 89 MG/DL (<100); NON-HDL-C 122 MG/DL; POTASSIUM SERUM 4.5 MEQ/L (3.5-5.1); SODIUM LEVEL 139 MEQ/L (136-145); TOTAL PROTEIN 7.3 GM/DL (6.4-8.2); TRIGLYCERIDES LEVEL 164 MG/DL (<150)
[2019-01-23 19:24] LABS: TOTAL 25(OH) VITAMIN D 34.3 NG/ML (30.0-100.0)
[2019-01-23 19:29] LABS: BASO # 0.1 10^3/uL (0.0-0.2); BASO % 0.7 % (0.0-1.0); EOS # 0.2 10^3/uL (0.0-0.5); EOS % 2.5 % (0.0-3.0); HEMATOCRIT 41.5 % (36.0-47.0); HEMOGLOBIN 13.6 g/dl (12.0-15.5); LYMPH # 2.7 10^3/uL (1.5-5.0); LYMPH % 32.2 % (24.0-44.0); MEAN CORPUSCULAR HEMOGLOBIN 31.3 pg (27.0-33.0); MEAN CORPUSCULAR HGB CONC 32.8 g/dl (32.0-36.5); MEAN CORPUSCULAR VOLUME 95.4 fl (80.0-96.0); MONO # 0.6 10^3/uL (0.0-0.8); MONO % 6.5 % (0.0-5.0); NEUTROPHILS # 4.9 10^3/uL (1.5-8.5); NEUTROPHILS % 57.9 % (36.0-66.0); PLATELET COUNT, AUTOMATED 287 10^3/uL (150-450); RED BLOOD COUNT 4.35 10^6/uL (4.00-5.40); WHITE BLOOD COUNT 8.4 10^3/uL (4.0-10.0)
== END ==
LOC: M SFHCADAM 15:12
PROVIDERS: ATTEND Physician Assistant Medical
DX: I10 Essential (primary) hypertension (principal); E55.9 Vitamin D deficiency, unspecified

== ENCOUNTER → 2019-03-20 | Outpatient (REF) | payer BC ==
[~2019-03-20] MED LIST changes: -AZIT500T2 PO; +AZIT500T5 PO
== END ==
LOC: M LAB REF 17:38
PROVIDERS: ATTEND Dermatology
DX: D23.60 Other benign neoplasm of skin of unspecified upper limb, including shoulder (principal)

== ENCOUNTER → 2019-04-12 | Outpatient (CLI) | payer BC ==
--- NOTE | 2019-04-12 13:20 | REPPI ---
Two-view chest: 04/12/2019. Indication: Dyspnea. Comparison: 09/01/2018. Findings: The patient is status post median sternotomy. Mild cardiomegaly is present. No air space consolidation is present. There is no pleural effusion or pneumothorax. Impression: No acute cardiopulmonary process. Electronically Signed by Estrada Fishman DO 04/12/2019 01:11 P
== END ==
LOC: M PLAIMG 11:05
PROVIDERS: ATTEND Physician Assistant Medical
DX: R06.02 Shortness of breath (principal)

== ENCOUNTER → 2019-04-12 | Outpatient (CLI) | payer BC ==
[~2019-04-12] MED LIST changes: +ISOVUE-370 76% 100ML VIAL (Q9967) As Ordered ONE
--- NOTE | 2019-04-12 12:50 | REP ---
CT pulmonary angiogram: With IV contrast. History: Shortness of breath Comparison studies: September 02, 2018 Contrast dose: 75 mL of Isovue [address] technique: Helical scanning is acquired and overlapping 1.5 mm and contiguous 3 mm axial images are reformatted. In addition, maximum intensity projection and multiplanar re-formation images are generated in sagittal and coronal imaging projections. CT pulmonary angiographic findings: Digital preliminary silver plater radiograph demonstrates median sternotomy wires. There is good opacification in the pulmonary arterial tree. There is no vessel cutoff or filling defect to suggest pulmonary embolus. Thoracic aorta shows no evidence of aneurysm or dissection. Maximum intensity projection images show no vascular abnormality. There is no evidence of pleural or pericardial effusion. The heart is somewhat prominent unchanged. No pulmonary nodule or mass lesion is observed. There is mild diffuse fatty infiltration of the liver. No adrenal lesion is seen. The visualized upper abdominal structures are otherwise unremarkable. No bony destructive lesion. Impression: No CT evidence of pulmonary embolus. Mildly prominent heart otherwise negative. Prior sternotomy. Electronically Signed by Mika Ahumada MD 04/12/2019 01:11 P
== END ==
LOC: M RAD 11:32
PROVIDERS: ATTEND Physician Assistant Medical
DX: R06.02 Shortness of breath (principal)
CPT/HCPCS: 71275; Q9967

== ENCOUNTER → 2019-05-07 | Outpatient (REF) | payer BC ==
[~2019-05-07] MED LIST changes: -ISOVUE-370 76% 100ML VIAL (Q9967) As Ordered ONE
[2019-05-07 12:02] LABS: ALBUMIN 3.6 GM/DL (3.2-5.2); ALT/SGPT 35 U/L (12-78); BILIRUBIN,TOTAL 0.5 MG/DL (0.2-1.0); BLOOD UREA NITROGEN 14 MG/DL (7-18); CALCIUM LEVEL 8.6 MG/DL (8.5-10.1); CARBON DIOXIDE LEVEL 26 MEQ/L (21-32); CHLORIDE LEVEL 105 MEQ/L (98-107); CREATININE FOR GFR 0.82 MG/DL (0.55-1.30); GLOMERULAR FILTRATION RATE > 60.0 (>58); GLUCOSE, FASTING 93 MG/DL (70-100); NT-PRO BNP 687 PG/ML (<125); POTASSIUM SERUM 4.1 MEQ/L (3.5-5.1); SODIUM LEVEL 142 MEQ/L (136-145); TOTAL PROTEIN 7.4 GM/DL (6.4-8.2)
== END ==
LOC: M SFHCPLAZ 08:47
PROVIDERS: ATTEND Physician Assistant Medical
DX: I50.9 Heart failure, unspecified (principal)

== ENCOUNTER → 2019-05-31 | Outpatient (CLI) | payer BC ==
--- NOTE | 2019-06-01 08:13 | ECHO ---
DATE OF PROCEDURE: 05/31/2019 REFERRING PHYSICIAN: МАРИНА Flanagan INDICATION: Essential hypertension, congestive heart failure. HEIGHT: 163 cm WEIGHT: 132 kg DIMENSIONS: IVS: 1.1 cm LV: 4.4 cm LVPW: 0.9 cm LA: 4.0 cm Aorta: 2.6 cm IVC: 1.5 cm E wave velocity 86, A wave 50, E prime septal 13.3, and E prime lateral 14.1. FINDINGS: The study is of very limited technical quality corresponding to patient's habitus. The patient is in sinus rhythm. Left ventricle is normal size and overall probably normal systolic function based on poor visualization. Right ventricle also appears grossly normal size and contractility, but visualization was poor. Both atria appear normal. Limited views of aortic, mitral, and tricuspid valves reveal no significant abnormalities. No pericardial effusion is noted. Inferior vena cava is normal size and collapses with respiration indicative of normal central venous pressure. Aortic root is normal. Aortic arch was not well seen. Abdominal aorta appears normal. DOPPLER INTERROGATION: There is no aortic stenosis or insufficiency. Same applies for mitral valve. There is trace tricuspid insufficiency. Calculated pulmonary artery pressure is within normal limits. Evaluation of diastolic function based on mitral inflow pattern and tissue Doppler imaging of mitral annulus reveals normal diastolic function. CONCLUSIONS: 1. Patient is in sinus rhythm, the study is of poor technical quality corresponding to patient's body habitus. 2. Normal LV size with likely normal systolic and diastolic function. 3. No significant valvular disease. 4. Normal central venous pressure and normal pulmonary artery pressure. COMMENTS: Subacute bacterial endocarditis (SBE) prophylaxis is not recommended. Considering technical difficulties of the study probably normal echocardiogram.
== END ==
LOC: M CARPUL 16:41
PROVIDERS: ATTEND Physician Assistant Medical
DX: I10 Essential (primary) hypertension (principal)

== ENCOUNTER → 2019-06-21 | Outpatient (REF) | payer BC ==
[2019-06-21 13:23] LABS: BLOOD UREA NITROGEN 11 MG/DL (7-18); CALCIUM LEVEL 8.4 MG/DL (8.5-10.1); CARBON DIOXIDE LEVEL 28 MEQ/L (21-32); CHLORIDE LEVEL 105 MEQ/L (98-107); CREATININE FOR GFR 0.81 MG/DL (0.55-1.30); GLOMERULAR FILTRATION RATE > 60.0 (>58); GLUCOSE, FASTING 102 MG/DL (70-100); POTASSIUM SERUM 4.3 MEQ/L (3.5-5.1); SODIUM LEVEL 138 MEQ/L (136-145)
== END ==
LOC: M SFHCPLAZ 11:10
PROVIDERS: ATTEND Physician Assistant Medical
DX: I50.9 Heart failure, unspecified (principal)

== ENCOUNTER → 2019-10-01 | Outpatient (REF) | payer BC ==
[2019-10-01 13:24] LABS: BASO # 0.1 10^3/uL (0.0-0.2); BASO % 0.5 % (0.0-1.0); EOS # 0.2 10^3/uL (0.0-0.5); EOS % 2.1 % (0.0-3.0); HEMATOCRIT 38.4 % (36.0-47.0); HEMOGLOBIN 12.5 g/dl (12.0-15.5); LYMPH # 2.6 10^3/uL (1.5-5.0); LYMPH % 24.4 % (24.0-44.0); MEAN CORPUSCULAR HEMOGLOBIN 30.6 pg (27.0-33.0); MEAN CORPUSCULAR HGB CONC 32.6 g/dl (32.0-36.5); MEAN CORPUSCULAR VOLUME 94.1 fl (80.0-96.0); MONO # 0.7 10^3/uL (0.0-0.8); MONO % 6.1 % (0.0-5.0); NEUTROPHILS # 7.2 10^3/uL (1.5-8.5); NEUTROPHILS % 66.5 % (36.0-66.0); PLATELET COUNT, AUTOMATED 253 10^3/uL (150-450); RED BLOOD COUNT 4.08 10^6/uL (4.00-5.40); WHITE BLOOD COUNT 10.8 10^3/uL (4.0-10.0)
[2019-10-01 13:43] LABS: HEMOGLOBIN A1c 5.8 %
[2019-10-01 13:57] LABS: ALBUMIN 3.3 GM/DL (3.2-5.2); ALT/SGPT 36 U/L (12-78); BILIRUBIN,TOTAL 0.4 MG/DL (0.2-1.0); BLOOD UREA NITROGEN 13 MG/DL (7-18); CALCIUM LEVEL 8.6 MG/DL (8.5-10.1); CARBON DIOXIDE LEVEL 31 MEQ/L (21-32); CHLORIDE LEVEL 103 MEQ/L (98-107); CREATININE FOR GFR 0.76 MG/DL (0.55-1.30); GLOMERULAR FILTRATION RATE > 60.0 (>58); GLUCOSE, FASTING 104 MG/DL (70-100); NT-PRO BNP 469 PG/ML (<125); POTASSIUM SERUM 4.5 MEQ/L (3.5-5.1); SODIUM LEVEL 138 MEQ/L (136-145)
== END ==
LOC: M SFHCPLAZ 10:30
PROVIDERS: ATTEND Physician Assistant Medical
DX: I11.0 Hypertensive heart disease with heart failure (principal); I50.9 Heart failure, unspecified; Z68.43 Body mass index [BMI] 50.0-59.9, adult

== ENCOUNTER → 2019-11-13 | Outpatient (CLI) | payer BC ==
[~2019-11-13] MED LIST changes: +ATOR1TAB19 PO; +CETI10TA PO; +FURO40TA2 PO; +MELO7.5T35 PO; +TOPI25TA10 PO; +VITA50005 PO
[2019-11-13 12:06] LABS: ALBUMIN 3.2 GM/DL (3.2-5.2); ALT/SGPT 34 U/L (12-78); BILIRUBIN,TOTAL 0.3 MG/DL (0.2-1.0); BLOOD UREA NITROGEN 12 MG/DL (7-18); CALCIUM LEVEL 8.5 MG/DL (8.5-10.1); CARBON DIOXIDE LEVEL 25 MEQ/L (21-32); CHLORIDE LEVEL 107 MEQ/L (98-107); CHOLESTEROL LEVEL 200 MG/DL (<200); CHOLESTEROL RISK RATIO 5.263 (<5); CREATININE FOR GFR 0.87 MG/DL (0.55-1.30); GLOMERULAR FILTRATION RATE > 60.0 (>58); GLUCOSE, FASTING 107 MG/DL (70-100); HDL CHOLESTEROL 38 MG/DL (>40); LDL CHOLESTEROL 125 MG/DL (<100); NON-HDL-C 162 MG/DL; NT-PRO BNP 472 PG/ML (<125); POTASSIUM SERUM 4.3 MEQ/L (3.5-5.1); SODIUM LEVEL 140 MEQ/L (136-145); TOTAL PROTEIN 6.9 GM/DL (6.4-8.2); TRIGLYCERIDES LEVEL 183 MG/DL (<150)
== END ==
LOC: M PLALAB 09:03
PROVIDERS: ATTEND Physician Assistant Medical
DX: Z13.220 Encounter for screening for lipoid disorders (principal); I10 Essential (primary) hypertension

== ENCOUNTER → 2020-01-30 | Outpatient (CLI) | payer BC ==
[2020-01-30 15:42] LABS: HEMOGLOBIN A1c 5.8 %
[2020-01-30 16:03] LABS: ALBUMIN 3.7 GM/DL (3.2-5.2); BILIRUBIN,DIRECT 0.2 MG/DL (0.0-0.2); BILIRUBIN,TOTAL 0.7 MG/DL (0.2-1.0); TOTAL PROTEIN 7.6 GM/DL (6.4-8.2)
== END ==
LOC: M PLALAB 13:20
PROVIDERS: ATTEND Physician Assistant Medical
DX: I50.9 Heart failure, unspecified (principal); E66.01 Morbid (severe) obesity due to excess calories; E78.00 Pure hypercholesterolemia, unspecified; R73.01 Impaired fasting glucose

== ENCOUNTER 2020-02-25 22:44 | Inpatient (IN) | payer BC ==
[~2020-02-25] VITALS: Ht 165.1 cm; Wt 136.1 kg
[~2020-02-25 22:44] MED LIST changes: -ATOR1TAB19 PO; -CETI10TA PO; -FURO40TA2 PO; -MELO7.5T35 PO; -TOPI25TA10 PO; -VITA50005 PO
[2020-02-25] MEDS ORDERED: ATOR1TAB19 PO (22:54)
[2020-02-25] MEDS ORDERED: TOPI25TA10 PO (22:54)
[2020-02-25] MEDS ORDERED: MELO7.5T35 PO (22:54)
[2020-02-25] MEDS ORDERED: FURO40TA2 PO (22:54)
[2020-02-26 00:21] LABS: BASO % 0.5 % (0.0-1.0); EOS # 0.2 10^3/uL (0.0-0.5); EOS % 2.3 % (0.0-3.0); HEMATOCRIT 40.4 % (36.0-47.0); HEMOGLOBIN 13.5 g/dl (12.0-15.5); LYMPH # 2.8 10^3/uL (1.5-5.0); LYMPH % 33.8 % (24.0-44.0); MEAN CORPUSCULAR HGB CONC 33.4 g/dl (32.0-36.5); MEAN CORPUSCULAR VOLUME 92.9 fl (80.0-96.0); MONO # 0.5 10^3/uL (0.0-0.8); MONO % 6.5 % (0.0-5.0); NEUTROPHILS # 4.7 10^3/uL (1.5-8.5); NEUTROPHILS % 56.2 % (36.0-66.0); PLATELET COUNT, AUTOMATED 247 10^3/uL (150-450); RED BLOOD COUNT 4.35 10^6/uL (4.00-5.40); WHITE BLOOD COUNT 8.3 10^3/uL (4.0-10.0)
[2020-02-26 00:24] LABS: HCG, SERUM QUALITATIVE NEGATIVE (NEGATIVE)
[2020-02-26 00:30] LABS: BLOOD UREA NITROGEN 15 MG/DL (7-18); CALCIUM LEVEL 8.9 MG/DL (8.5-10.1); CARBON DIOXIDE LEVEL 26 MEQ/L (21-32); CHLORIDE LEVEL 105 MEQ/L (98-107); CK-MB VALUE MASS < 1.0 NG/ML (<3.6); CPK CREATINE PHOSPHOKINASE 83 U/L (26-192); CREATININE FOR GFR 0.86 MG/DL (0.55-1.30); GLOMERULAR FILTRATION RATE > 60.0 (>58); GLUCOSE, FASTING 87 MG/DL (70-100); NT-PRO BNP 837 PG/ML (<125); POTASSIUM SERUM 3.6 MEQ/L (3.5-5.1); SODIUM LEVEL 137 MEQ/L (136-145); TROPONIN I < 0.02 NG/ML (< 0.10)
--- NOTE | 2020-02-26 01:17 | REPVR ---
PROCEDURE INFORMATION: Exam: XR Chest, 2 Views Exam date and time: 02/26/2020 1:10 AM Age: 45 years old Clinical indication: Chest pain; Type not specified TECHNIQUE: Imaging protocol: XR of the chest Views: 2 views. COMPARISON: CR Chest, 2 view PA, Lat 09/01/2018 11:47 PM FINDINGS: Lungs: Unremarkable. No consolidation. Pleural space: Unremarkable. No pleural effusion. No pneumothorax. Heart/Mediastinum: Unremarkable. No cardiomegaly. Bones/joints: Status post median sternotomy IMPRESSION: No acute findings. Electronically signed by: Andres Moreno On 02/26/2020 01:17:46 AM
--- NOTE | 2020-02-26 04:26 | HPEPDOC ---
[facility] Medical History & Physical Date of Admission Feb 26, 2020 Date of Service: Feb 26, 2020 Primary Care Physician: Nyasia Anderson Attending Physician: STEPHANE GARCIA MD History and Physical TIME OF SERVICE: 530am CHIEF COMPLAINT: Dizziness HISTORY OF PRESENT ILLNESS: This 45-year-old female presented with complaints of feeling like the room around her spinning. She was seen black spots yesterday evening while walking to the elevator. She not having chest pain, shortness of breath, palpitations, nausea, vomiting, diarrhea, falling, or using consciousness prior to or after developing the symptoms. She denies eating less than usual yesterday. Her symptoms did not improve despite drinking water and having more food to eat. Of note had an energy drink yesterday evening and was started on topiramate about 4 weeks ago. She denies having any changes to the dose of her Lasix, or metoprolol recently. Over the last few months she has been experiencing shortness of breath and has been following up with Dr. Pearce who did an Echo that was unremarkable; last week she had a stress test that was negative. Per d/w she was noted to have a HR in the low 50s and low 60s in the ER. REVIEW OF SYSTEMS: 12 point review of systems negative except as listed in HPI PAST MEDICAL/ SURGICAL HISTORY: Chronic hypertension Elevated BNP (Echo 2019 normal pulmonary pressure, systolic and diastolic function) Severe vitamin D deficiency Chronic back pain Migraines TAINA, uses CPAP Breast reduction surgery in 1999 in 2007 Resection of a left thigh melanoma in 2010 Left Achilles tendon repair in 2012 Sternotomy to resect benign mass in 2016 SOCIAL HISTORY: She doesn't smoke, drink or use recreational drugs FAMILY HISTORY: Depression Heart disease ALLERGIES: Please see below. HOME MEDICATIONS: Please see below. PHYSICAL EXAMINATION: Vital Signs Date Time Temp Pulse Resp B/P (MAP) Pulse Ox O2 Delivery O2 Flow Rate FiO2 02/25/20 22:45 97.5 67 16 131/75 (93) 100 Room Air GEN: well-nourished / well developed/ NAD INTEGUMENT: not flushed/ post sternotomy scar at midchest HEENT: lips acyanotic /mucus membranes slightly dry CVS: RRR/NMRG/ radial pulses intact / no lower extremity edema LUNGS: able to speak full sentences without stopping to take a breath / no coughing / lungs are clear to auscultation bilaterally on room air MSK/EXTREMITIES: NCAT / range of motion intact in all 4 extremities NEURO: slight left sided horizontal nystagmus / CN 2-12 are grossly intact / speech is not dysarthric / strength is 5/5 PSYCH: alert and oriented to person place and time/ able to understand and follow all commands LABORATORY DATA: 02/25/20 23:42 02/25/20 23:42: Immature Granulocyte % (Auto) 0.7, Neutrophils (%) (Auto) 56.2, Lymphocytes (%) (Auto) 33.8, Monocytes (%) (Auto) 6.5H, Eosinophils (%) (Auto) 2.3, Basophils (%) (Auto) 0.5, Neutrophils # (Auto) 4.7, Lymphocytes # (Auto) 2.8, Monocytes # (Auto) 0.5, Eosinophils # (Auto) 0.2, Basophils # (Auto) 0.0, Nucleated Red Blood Cells % (auto) 0.0, Anion Gap 6L, Glomerular Filtration Rate > 60.0, Calcium Level 8.9, Total Creatine Kinase 83, Creatine Kinase MB < 1.0, Creatine Kinase MB Relative Index 1.20, Troponin I < 0.02, GK-Bqd-G-Type Natriuretic Peptide 837H, Thyroid Stimulating Hormone (TSH) 3.960H, Human Chorionic Gonadotropin, Qual NEGATIVE IMAGING: Chest xray "IMPRESSION: No acute findings." MICROBIOLOGY: Please see below. ASSESSMENT: is a 45 yr old w a hx of HTN, vitamin D deficiency, migraines, chronic back pain. TAINA. Multiple surgeries, who presented with complaints of dizziness and almost blacking out and will be admitted for evaluation of presyncope. PLAN: 1. Presyncope Possibly 2/2 combination of energy drink, topiramate which can cause dizziness in 4-29% of patients and metoprolol which can cause dizzines in 20% of patients Despite negative orthostasis she reports feeling dizzy when she was transferred from lying down to sitting up Plan: admit to medical floor / telemetry / f/u 2 more trops / f/u CT head to r/o CVA, the day time team may consider MRI of brain to r/o vertibrobasillar insufficiency / decrease dose of metoprolol / switch topiramate from daily to QHS 2. Bradycardia Likely 2/2 metoprolol Trops <0.02 x 2 Plan: telemetry /f/u 1 more trop / will decrease dose of metoprolol from 25 to 12.5mg BID 3. Elevated BNP Likely 2/2 ventricular stress wall from HTN BNP also tends to be elevated in females Echo showed normal EF and no evidence of pulm HTN 4. Low TSH Likely 2/2 euthyroid sick syndrome Plan: f/u PCP on repeat TFTs in 6 weeks 5. Chronic HTN Plan: metoprolol and lasix / will ask day time team to touch base with to see if she can be switched to a amlodpine with lisinopril combo or amlodipine diuretic combo bc she doesn't have evidence of systolic dysfunction on her Echo 6. Migranes Plan: topiramate 7. Severe vitamin D deficiency Plan: ergocalciferol 8. Chronic back pain Plan: meloxicam 9. TAINA Own: CPAP DVT PROPHYLAXIS: SCDs DISPOSITION: likey home after less than 2 midnight's stay Home Medications Scheduled Atorvastatin Calcium (Atorvastatin Calcium) 10 Mg Tablet, 10 MG PO DAILY Cetirizine HCl (Cetirizine HCl) 10 Mg Tablet, 10 MG PO DAILY Duloxetine Hcl (Duloxetine HCl) 30 Mg Cap, 30 MG PO DAILY Ergocalciferol (Vitamin D2) (Vitamin D2) 50,000 Units Cap, 50,000 UNITS PO 1XWK TUESDAY Furosemide (Furosemide) 40 Mg Tablet, 20 MG PO BID Meloxicam (Meloxicam) 7.5 Mg Tablet, 7.5 MG PO DAILY Metoprolol Tartrate (Metoprolol Tartrate) 25 Mg Tab, 25 MG PO BID Topiramate (Topiramate) 25 Mg Tablet, 25 MG PO DAILY Allergies Coded Allergies: Sulfa (Sulfonamide Antibiotics) (Verified Allergy, Unknown, 09/02/18) codeine (Verified Allergy, Unknown, 09/02/18) A-FIB/CHADSVASC A-FIB History Current/History of A-Fib/PAF?: No Current PO Anticoag Therapy: No STEPHANE GARCIA MD Feb 26, 2020 04:26
[2020-02-26] MEDS ORDERED: MOM 30ML SUSPENSION UDC PO PRN (04:30)
[2020-02-26] MEDS ORDERED: ACETAMINOPHEN TAB 650MG DOSE (2X325MG) PO PRN (04:30)
[2020-02-26] MEDS ORDERED: MAALOX 30 ML SUSP *UDC PO PRN (04:30)
[2020-02-26 04:31] LABS: CK-MB VALUE MASS < 1.0 NG/ML (<3.6); CPK CREATINE PHOSPHOKINASE 80 U/L (26-192); MB/CK RELATIVE INDEX 1.25 (< OR =4); TROPONIN I < 0.02 NG/ML (< 0.10)
[2020-02-26] MEDS ORDERED: CETI10TA PO (04:47)
[2020-02-26] MEDS ORDERED: VITA50005 PO (04:47)
--- NOTE | 2020-02-26 06:03 | REPVR ---
PROCEDURE INFORMATION: Exam: CT Head Without Contrast Exam date and time: 02/26/2020 5:44 AM Age: 45 years old Clinical indication: Dizziness; Additional info: Dizziness and horizontal nystagmus R/O CVA TECHNIQUE: Imaging protocol: Computed tomography of the head without contrast. Radiation optimization: All CT scans at this facility use at least one of these dose optimization techniques: automated exposure control; mA and/or kV adjustment per patient size (includes targeted exams where dose is matched to clinical indication); or iterative reconstruction. Other technique: STROKE PROTOCOL was implemented. COMPARISON: No relevant prior studies available. FINDINGS: Brain: Normal. No hemorrhage. Unremarkable white matter. No mass effect. Cerebral ventricles: No ventriculomegaly. Bones/joints: Unremarkable. No acute fracture. Paranasal sinuses: Visualized sinuses are unremarkable. No fluid levels. Mastoid air cells: Visualized mastoid air cells are well aerated. Soft tissues: Unremarkable. IMPRESSION: No acute intracranial abnormality. ASSESSMENT: ASPECTS ([place] Stroke Program Early CT Score) is 10. Electronically signed by: Andres Moreno On 02/26/2020 06:03:36 AM
[2020-02-26 07:45] VITALS: BP 135/80
[2020-02-26 08:00] VITALS: O2SAT 99
[2020-02-26] MEDS ORDERED: CETIRIZINE (ZyrTEC) 10 MG TAB PO SCH (09:00)
[2020-02-26] MEDS ORDERED: VITAMIN D 50,000 UNITS CAPSULE (ERGOCALCIFEROL 1.25MG) PO SCH (09:00)
[2020-02-26] MEDS ORDERED: METOPROLOL TART 25 MG TABLET PO SCH (09:00)
[2020-02-26] MEDS ORDERED: FUROSEMIDE 20 MG TAB PO SCH (09:00)
[2020-02-26] MEDS ORDERED: ATORVASTATIN 10 MG TAB PO SCH (09:00)
[2020-02-26] MEDS ORDERED: TOPIRAMATE (TopAMAX) 25 MG TAB PO SCH (09:00)
[2020-02-26] MEDS ORDERED: MELOXICAM (MOBIC) 7.5 MG TAB PO SCH (09:00)
[2020-02-26] MEDS ORDERED: DULoxetine 30 MG CAP (CYMBALTA) PO SCH (09:00)
[2020-02-26] MEDS ORDERED: METO25TA4 PO (09:04)
--- NOTE | 2020-02-26 09:35 | ECGEPIP ---
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
[2020-02-26 09:47] VITALS: BP 135/80
[2020-02-26 12:45] VITALS: BP 156/96
[2020-02-26 14:00] VITALS: O2SAT 96
[2020-02-26 15:00] VITALS: O2SAT 97
--- NOTE | 2020-02-26 15:44 | DS.PDOC ---
Discharge Summary General Date of Admission Feb 26, 2020 at 04:30 Date of Discharge 02/26/2020 Discharge Summary PROCEDURES PERFORMED DURING STAY: [None]. ADMITTING DIAGNOSES / DISCHARGE DIAGNOSES: s/p Pre-syncope HTN TAINA on CPAP Vitamin D deficiency Chronic back pain Migraine headaches DVT prophylaxis COMPLICATIONS/CHIEF COMPLAINT: Dizziness HISTORY OF PRESENT ILLNESS / HOSPITAL COURSE: Patient is a 45-year-old female with a PMHx of HTN, TAINA on CPAP, Vitamin D deficiency, Chronic back pain, Migraine headaches, who presented to the ER after experiencing lightheadedness while at work. Patient did not experience any prodromal-like symptoms including chest pain, shortness breath, palpitations, nausea, vomiting. Patient did not have any loss of consciousness and did not fall. Patient was admitted to the hospitalist service for evaluation of her presyncope. Patient had negative orthostatic vital signs at had full resolution of her symptoms upon admission. I discussed the case with the patient's admitted attorneys, Dr. Pearce patient has had a recent stress test that was negative. She has had an echocardiogram completed in May that did not reveal any evidence of systolic or diastolic dysfunction. Patient is completely asymptomatic at this time. She'll be discharged home with a reduction in the dose of her metoprolol. Patient has been advised to follow-up with her primary care provider as well as Dr. Pearce for likely Holter monitor. DISCHARGE MEDICATIONS: Please see below. ALLERGIES: Please see below. PHYSICAL EXAMINATION ON DISCHARGE: Vitals (See below) General: Lying in bed, appears comfortable, AAOx3 HEENT: NC, AT CVS: +S1S2 Lungs: Fair air entry b/l, no wheezing or rhonchi or rales Abdomen: Soft, ND, NT Extremities: No evidence of edema, - Calf tenderness LABORATORY DATA: Please see below. ACTIVITY: [As tolerated]. DISCHARGE PLAN: Follow-up with primary care provider, and cardiology within the next 7 days Remain compliant with treatment plan and medications Return to the ER if you experience any problems DISPOSITION: Home DISCHARGE CONDITION: [Stable]. TIME SPENT ON DISCHARGE: 35 minutes. Vital Signs/I&Os Vital Signs Date Time Temp Pulse Resp B/P (MAP) Pulse Ox O2 Delivery O2 Flow Rate FiO2 02/26/20 14:00 96 Room Air 02/26/20 12:45 97.3 57 18 156/96 (116) Laboratory Data Labs 24H Laboratory Tests 2 02/25/20 23:42: Immature Granulocyte % (Auto) 0.7, Neutrophils (%) (Auto) 56.2, Lymphocytes (%) (Auto) 33.8, Monocytes (%) (Auto) 6.5H, Eosinophils (%) (Auto) 2.3, Basophils (%) (Auto) 0.5, Neutrophils # (Auto) 4.7, Lymphocytes # (Auto) 2.8, Monocytes # (Auto) 0.5, Eosinophils # (Auto) 0.2, Basophils # (Auto) 0.0, Nucleated Red Blood Cells % (auto) 0.0, Anion Gap 6L, Glomerular Filtration Rate > 60.0, Calcium Level 8.9, Total Creatine Kinase 83, Creatine Kinase MB < 1.0, Creatine Kinase MB Relative Index 1.20, Troponin I < 0.02, YC-Wir-D-Type Natriuretic Peptide 837H, Thyroid Stimulating Hormone (TSH) 3.960H, Human Chorionic Gonadotropin, Qual NEGATIVE 02/26/20 03:48: Total Creatine Kinase 80, Creatine Kinase MB < 1.0, Creatine Kinase MB Relative Index 1.25, Troponin I < 0.02 02/26/20 09:03: Troponin I < 0.02 CBC/BMP Laboratory Tests 02/25/20 23:42 Discharge Medications Scheduled Atorvastatin Calcium (Atorvastatin Calcium) 10 Mg Tablet, 10 MG PO DAILY, (Reported) Cetirizine HCl (Cetirizine HCl) 10 Mg Tablet, 10 MG PO DAILY, (Reported) Duloxetine Hcl (Duloxetine HCl) 30 Mg Cap, 30 MG PO DAILY, (Reported) Ergocalciferol (Vitamin D2) (Vitamin D2) 50,000 Units Cap, 50,000 UNITS PO 1XWK, (Reported) TUESDAY Furosemide (Furosemide) 40 Mg Tablet, 20 MG PO BID, (Reported) Meloxicam (Meloxicam) 7.5 Mg Tablet, 7.5 MG PO DAILY, (Reported) Metoprolol Tartrate (Metoprolol Tartrate) 25 Mg Tab, 12.5 MG PO BID Topiramate (Topiramate) 25 Mg Tablet, 25 MG PO DAILY, (Reported) Allergies Coded Allergies: Sulfa (Sulfonamide Antibiotics) (Verified Allergy, Unknown, 09/02/18) codeine (Verified Allergy, Unknown, 09/02/18) CY QUINONES MD Feb 26, 2020 15:44
== END 2020-02-26 16:17 | disposition home or self-care (01) | DRG 111 ==
LOC: M ED 22:44 → M ED INP 22:45 → OBSVTOIN 02-26 04:30 → M PCU 02-26 12:50
PROVIDERS: ADMIT Internal Medicine; ATTEND Internal Medicine
DX: R42 Dizziness and giddiness (principal); I10 Essential (primary) hypertension; R00.1 Bradycardia, unspecified; G43.909 Migraine, unspecified, not intractable, without status migrainosus; M54.5 Low back pain; E55.9 Vitamin D deficiency, unspecified; G47.33 Obstructive sleep apnea (adult) (pediatric); Z79.899 Other long term (current) drug therapy; Z88.2 Allergy status to sulfonamides; Z88.5 Allergy status to narcotic agent

== ENCOUNTER → 2020-07-02 | Outpatient (REF) | payer BC ==
[~2020-07-02] MED LIST changes: +ATOR1TAB19 PO; +CETI10TA PO; +FURO40TA2 PO; +MELO7.5T35 PO; +TOPI25TA10 PO; +VITA50005 PO
[2020-07-02 17:55] LABS: HEMOGLOBIN A1c 5.4 %
[2020-07-02 18:09] LABS: ALBUMIN 3.7 GM/DL (3.2-5.2); ALT/SGPT 32 U/L (12-78); BILIRUBIN,TOTAL 0.6 MG/DL (0.2-1.0); BLOOD UREA NITROGEN 11 MG/DL (7-18); CALCIUM LEVEL 8.6 MG/DL (8.5-10.1); CARBON DIOXIDE LEVEL 29 MEQ/L (21-32); CHLORIDE LEVEL 107 MEQ/L (98-107); CHOLESTEROL LEVEL 129 MG/DL (<200); CREATININE FOR GFR 0.82 MG/DL (0.55-1.30); FREE T4 0.92 NG/DL (0.76-1.46); GLOMERULAR FILTRATION RATE > 60.0 (>58); GLUCOSE, FASTING 104 MG/DL (70-100); HDL CHOLESTEROL 43 MG/DL (>40); LDL CHOLESTEROL 69 MG/DL (<100); NON-HDL-C 86 MG/DL; NT-PRO BNP 214 PG/ML (<125); POTASSIUM SERUM 3.9 MEQ/L (3.5-5.1); SODIUM LEVEL 139 MEQ/L (136-145); TOTAL PROTEIN 7.3 GM/DL (6.4-8.2); TRIGLYCERIDES LEVEL 84 MG/DL (<150)
== END ==
LOC: M SFHCPLAZ 15:35
PROVIDERS: ATTEND Physician Assistant Medical
DX: R73.01 Impaired fasting glucose (principal); I50.9 Heart failure, unspecified; Z68.43 Body mass index [BMI] 50.0-59.9, adult; E78.00 Pure hypercholesterolemia, unspecified

== ENCOUNTER → 2020-07-12 | Outpatient (CLI) | payer SELFPAY | LOC: M LABSMTC 11:22 | PROVIDERS: ATTEND Pediatrics | DX: Z20.822 Contact with and (suspected) exposure to COVID-19 (principal) ==

== ENCOUNTER → 2020-07-15 | Outpatient (CLI) | payer SELFPAY | LOC: M LABSMTC 14:11 | PROVIDERS: ATTEND Pediatrics | DX: Z11.52 Encounter for screening for COVID-19 (principal) ==

== ENCOUNTER → 2020-08-13 | Outpatient (CLI) | payer BC ==
--- NOTE | 2020-08-13 16:27 | REPMRS ---
Patient History The patient states she had a clinical breast exam in 07/2020 Patient is postmenopausal and has history of melanoma at age 35. No known family history of cancer. Reductions of both breasts, 2000. Digital Woman Screen Mammo: August 13, 2020 - Exam #: [id number] Bilateral CC and MLO view(s) were taken. Technologist: Aspen Deleon, Technologist Prior study comparison: 2019, bilateral digital mammo screening bilat, performed at [facility]. 2017, bilateral digital mammo screening bilat, performed at [facility]. FINDINGS: The breast tissue is almost entirely fat. The Volpara volumetric breast density category is: A. There has been no change in the appearance of the mammogram from the prior studies. There is no interval development of dominant mass, architectural distortion, or grouped microcalcification typical of malignancy. 3-D tomosynthesis shows no additional findings. Assessment: BI-RADS/ACR category 1 mammogram. Negative Mammogram. Recommendation Routine screening mammogram of both breasts in 1 year (for women over age 40). This patient's [facility] Lifetime Breast Cancer RIsk is estimated at 8.5 %. This mammogram was interpreted with the aid of an FDA-approved computer-aided dectection system. Electronically Signed By: Jason Ahumada MD 08/13/20 [id number]
== END ==
LOC: M WHC 14:07
PROVIDERS: ATTEND Advanced Practice Midwife
DX: Z12.31 Encounter for screening mammogram for malignant neoplasm of breast (principal); Z12.4 Encounter for screening for malignant neoplasm of cervix
CPT/HCPCS: 77063; 77067; 87624; G0123

== ENCOUNTER → 2020-09-01 | Outpatient (REF) | payer BC ==
[2020-09-01 16:11] LABS: PTH INTACT 76.5 PG/ML (18.5-88.0); TOTAL 25(OH) VITAMIN D 25.7 NG/ML (30.0-100.0)
== END ==
LOC: M SFHCPLAZ 12:06
PROVIDERS: ATTEND Physician Assistant Medical
DX: I50.9 Heart failure, unspecified (principal); E55.9 Vitamin D deficiency, unspecified

== ENCOUNTER → 2020-09-01 | Outpatient (CLI) | payer BC ==
--- NOTE | 2020-09-01 22:01 | REP ---
INDICATION: N91.2 AMENORRHEA/SURV OF IUD/Z30.431 COMPARISON: None. TECHNIQUE: Transabdominal pelvic ultrasound followed by transvaginal examination for better evaluation of the endometrium and adnexa with color Doppler evaluation of the ovaries. FINDINGS: Bladder is unremarkable and measures 10.8 x 5.7 x 7.8 cm. Normal anteverted uterus measures 8.2 x 3.8 x 4.6 cm. The endometrial complex measures 11.5 mm thickness. IUD is identified extending from the lower uterine segment into the cervix. Right ovary is not visualized. Left ovary measures 4.5 x 3.7 x 3.7 cm (RI 0.60) and includes 3.0 x 3.0 x 2.7 cm presumed physiologic cyst. No pelvic free fluid or adnexal mass lesion. IMPRESSION: IUD extends into the cervix. Right ovary not visualized. 3 cm cyst in the left ovary likely physiologic. Consider re-evaluation in 4-6 weeks if the patient exhibits associated symptoms. <Electronically signed by Be Sam > 09/01/20 [id number]
== END ==
LOC: M WHC 11:00
PROVIDERS: ATTEND Advanced Practice Midwife
DX: N91.2 Amenorrhea, unspecified (principal); Z30.431 Encounter for routine checking of intrauterine contraceptive device

== ENCOUNTER → 2020-12-22 | Outpatient (REF) | payer BC ==
[~2020-12-22] MED LIST changes: +ERGO500029 PO; -VITA50005 PO
[2020-12-22 13:16] LABS: ALBUMIN 3.3 GM/DL (3.2-5.2); ALT/SGPT 29 U/L (12-78); BILIRUBIN,TOTAL 0.5 MG/DL (0.2-1.0); BLOOD UREA NITROGEN 10 MG/DL (7-18); CALCIUM LEVEL 8.6 MG/DL (8.5-10.1); CARBON DIOXIDE LEVEL 26 MEQ/L (21-32); CHLORIDE LEVEL 106 MEQ/L (98-107); CREATININE FOR GFR 0.77 MG/DL (0.55-1.30); GLOMERULAR FILTRATION RATE > 60.0 (>58); GLUCOSE, FASTING 108 MG/DL (70-100); NT-PRO BNP 378 PG/ML (<125); POTASSIUM SERUM 4.5 MEQ/L (3.5-5.1); SODIUM LEVEL 139 MEQ/L (136-145)
[2020-12-22 13:34] LABS: HEMOGLOBIN A1c 5.7 %
== END ==
LOC: M SFHCPLAZ 08:29 → M SFHCADAM 08:30
PROVIDERS: ATTEND Physician Assistant Medical
DX: L65.9 Nonscarring hair loss, unspecified (principal); I50.9 Heart failure, unspecified; R73.01 Impaired fasting glucose

== ENCOUNTER → 2020-12-30 | Outpatient (REF) | LOC: M EMP 09:33 | PROVIDERS: ATTEND Family Medicine | DX: Z20.822 Contact with and (suspected) exposure to COVID-19 (principal) ==

== ENCOUNTER → 2021-02-18 | Outpatient (CLI) | payer BC ==
[2021-02-18 13:25] LABS: HEMOGLOBIN A1c 5.8 %
== END ==
LOC: M LAB 11:47
PROVIDERS: ATTEND Surgery
DX: Z86.39 Personal history of other endocrine, nutritional and metabolic disease (principal)

== ENCOUNTER → 2021-04-06 | Outpatient (CLI) | payer BC ==
[2021-04-06 15:33] LABS: BASO # 0.1 10^3/uL (0.0-0.2); BASO % 0.5 % (0.0-1.0); EOS # 0.2 10^3/uL (0.0-0.5); EOS % 1.8 % (0.0-3.0); HEMOGLOBIN 12.9 g/dl (12.0-15.5); LYMPH # 2.5 10^3/uL (1.5-5.0); LYMPH % 26.1 % (24.0-44.0); MEAN CORPUSCULAR HEMOGLOBIN 30.3 pg (27.0-33.0); MEAN CORPUSCULAR HGB CONC 32.3 g/dl (32.0-36.5); MEAN CORPUSCULAR VOLUME 93.9 fl (80.0-96.0); MONO # 0.5 10^3/uL (0.0-0.8); MONO % 4.9 % (2.0-8.0); NEUTROPHILS # 6.3 10^3/uL (1.5-8.5); NEUTROPHILS % 66.3 % (36.0-66.0); PLATELET COUNT, AUTOMATED 302 10^3/uL (150-450); RED BLOOD COUNT 4.26 10^6/uL (4.00-5.40); WHITE BLOOD COUNT 9.5 10^3/uL (4.0-10.0)
[2021-04-06 15:40] LABS: ALBUMIN 3.2 GM/DL (3.2-5.2); ALT/SGPT 33 U/L (12-78); BILIRUBIN,TOTAL 0.4 MG/DL (0.2-1.0); BLOOD UREA NITROGEN 12 MG/DL (7-18); CALCIUM LEVEL 8.8 MG/DL (8.5-10.1); CARBON DIOXIDE LEVEL 32 MEQ/L (21-32); CHLORIDE LEVEL 104 MEQ/L (98-107); CREATININE FOR GFR 0.83 MG/DL (0.55-1.30); GLOMERULAR FILTRATION RATE > 60.0 (>58); GLUCOSE, FASTING 140 MG/DL (70-100); NT-PRO BNP 629 PG/ML (<125); POTASSIUM SERUM 4.1 MEQ/L (3.5-5.1); SODIUM LEVEL 141 MEQ/L (136-145); TOTAL PROTEIN 7.1 GM/DL (6.4-8.2)
== END ==
LOC: M PLALAB 13:48
PROVIDERS: ATTEND Physician Assistant Medical
DX: I50.9 Heart failure, unspecified (principal); I11.0 Hypertensive heart disease with heart failure

== ENCOUNTER → 2021-04-28 | Outpatient (REF) ==
[~2021-04-28] MED LIST changes: +AMLO25TA PO; -CEFD1CAP8 PO; +CEFD300C41 PO
== END ==
LOC: M EMP 08:29
PROVIDERS: ATTEND Family Medicine
DX: Z20.822 Contact with and (suspected) exposure to COVID-19 (principal)

== ENCOUNTER → 2021-04-29 | Outpatient (CLI) | payer BC ==
[~2021-04-29] MED LIST changes: +CEFD1CAP8 PO; -CEFD300C41 PO
[2021-04-29 08:33] LABS: ALBUMIN 3.4 GM/DL (3.2-5.2); ALT/SGPT 43 U/L (12-78); BILIRUBIN,TOTAL 0.3 MG/DL (0.2-1.0); BLOOD UREA NITROGEN 11 MG/DL (7-18); CALCIUM LEVEL 8.5 MG/DL (8.5-10.1); CARBON DIOXIDE LEVEL 28 MEQ/L (21-32); CHLORIDE LEVEL 105 MEQ/L (98-107); CREATININE FOR GFR 0.87 MG/DL (0.55-1.30); GLOMERULAR FILTRATION RATE > 60.0 (>58); GLUCOSE, FASTING 111 MG/DL (70-100); NT-PRO BNP 336 PG/ML (<125); POTASSIUM SERUM 4.3 MEQ/L (3.5-5.1); SODIUM LEVEL 139 MEQ/L (136-145); TOTAL PROTEIN 7.2 GM/DL (6.4-8.2)
== END ==
LOC: M LAB 07:20
PROVIDERS: ATTEND Physician Assistant Medical
DX: R73.01 Impaired fasting glucose (principal); I50.9 Heart failure, unspecified

== ENCOUNTER → 2021-05-01 | Outpatient (CLI) | payer BC | LOC: M LABSMTC 10:03 | PROVIDERS: ATTEND Anesthesiology | DX: Z01.818 Encounter for other preprocedural examination (principal); Z11.52 Encounter for screening for COVID-19 ==

== ENCOUNTER 2021-05-06 07:49 | Day surgery (SDC) | payer BC ==
[~2021-05-06] VITALS: Ht 165.1 cm; Wt 149.6 kg
[~2021-05-06 07:49] MED LIST changes: +NS 1,000 ML IV ONE
[2021-05-06] MEDS ORDERED: LIDOCAINE 2% 100MG/5ML SDV (FOR ANES.) As Ordered ONE (08:15)
[2021-05-06] MEDS ORDERED: propofoL 500 MG/50 ML VIAL As Ordered ONE (08:15)
[2021-05-06] MEDS ORDERED: fentaNYL 100 MCG/2 ML INJECTION (J3010) As Ordered ONE (08:15)
[2021-05-06 10:33] VITALS: BP 137/87
== END 2021-05-06 10:37 | disposition home or self-care (01) ==
LOC: M OPP 07:49
PROVIDERS: ATTEND Internal Medicine Gastroenterology
DX: Z12.11 Encounter for screening for malignant neoplasm of colon (principal); Z83.71 Family history of colonic polyps; K22.89 Other specified disease of esophagus; R12 Heartburn; Z01.818 Encounter for other preprocedural examination; E66.01 Morbid (severe) obesity due to excess calories; I50.9 Heart failure, unspecified; Z79.899 Other long term (current) drug therapy; Z88.2 Allergy status to sulfonamides; Z88.5 Allergy status to narcotic agent
CPT/HCPCS: 43239; 45378; 88305; J3010

== ENCOUNTER → 2021-06-01 | Outpatient (CLI) | payer BC ==
[~2021-06-01] MED LIST changes: -CEFD1CAP8 PO; +CEFD300C41 PO; -NS 1,000 ML IV ONE
[2021-06-01 11:11] LABS: ALBUMIN 3.7 GM/DL (3.2-5.2); ALT/SGPT 43 U/L (12-78); BILIRUBIN,TOTAL 0.3 MG/DL (0.2-1.0); BLOOD UREA NITROGEN 9 MG/DL (7-18); CALCIUM LEVEL 8.9 MG/DL (8.5-10.1); CARBON DIOXIDE LEVEL 30 MEQ/L (21-32); CHLORIDE LEVEL 100 MEQ/L (98-107); CREATININE FOR GFR 0.84 MG/DL (0.55-1.30); GLOMERULAR FILTRATION RATE > 60.0 (>58); GLUCOSE, FASTING 123 MG/DL (70-100); POTASSIUM SERUM 4.1 MEQ/L (3.5-5.1); SODIUM LEVEL 137 MEQ/L (136-145); TOTAL PROTEIN 7.6 GM/DL (6.4-8.2)
== END ==
LOC: M PLALAB 07:55
PROVIDERS: ATTEND Physician Assistant Medical
DX: B37.3 Candidiasis of vulva and vagina (principal)

== ENCOUNTER → 2021-07-09 | Outpatient (CLI) | payer BC ==
[2021-07-09 10:31] LABS: ALBUMIN 3.6 GM/DL (3.2-5.2); ALT/SGPT 53 U/L (12-78); BILIRUBIN,TOTAL 0.4 MG/DL (0.2-1.0); BLOOD UREA NITROGEN 10 MG/DL (7-18); CALCIUM LEVEL 9.1 MG/DL (8.5-10.1); CARBON DIOXIDE LEVEL 31 MEQ/L (21-32); CHLORIDE LEVEL 103 MEQ/L (98-107); CREATININE FOR GFR 0.96 MG/DL (0.55-1.30); GLOMERULAR FILTRATION RATE > 60.0 (>58); GLUCOSE, FASTING 82 MG/DL (70-100); NT-PRO BNP 292 PG/ML (<125); POTASSIUM SERUM 4.1 MEQ/L (3.5-5.1); SODIUM LEVEL 137 MEQ/L (136-145); TOTAL PROTEIN 7.5 GM/DL (6.4-8.2)
[2021-07-09 10:36] LABS: TOTAL 25(OH) VITAMIN D 30.4 NG/ML (30.0-100.0)
[2021-07-09 10:37] LABS: PTH INTACT 113.2 PG/ML (18.5-88.0)
[2021-07-09 12:00] LABS: HEMOGLOBIN A1c 5.8 %
== END ==
LOC: M PLALAB 07:59 → M LAB 07:59
PROVIDERS: ATTEND Physician Assistant Medical
DX: E55.9 Vitamin D deficiency, unspecified (principal); I50.9 Heart failure, unspecified; B37.3 Candidiasis of vulva and vagina

== ENCOUNTER → 2021-08-31 | Outpatient (CLI) | payer BC ==
[2021-08-31 15:24] LABS: BASO # 0.1 10^3/uL (0.0-0.2); BASO % 0.5 % (0.0-1.0); EOS # 0.1 10^3/uL (0.0-0.5); EOS % 1.1 % (0.0-3.0); HEMATOCRIT 39.5 % (36.0-47.0); LYMPH # 2.2 10^3/uL (1.5-5.0); LYMPH % 23.7 % (24.0-44.0); MEAN CORPUSCULAR HGB CONC 32.9 g/dl (32.0-36.5); MONO # 0.5 10^3/uL (0.0-0.8); MONO % 5.3 % (2.0-8.0); NEUTROPHILS # 6.4 10^3/uL (1.5-8.5); NEUTROPHILS % 69.2 % (36.0-66.0); PLATELET COUNT, AUTOMATED 290 10^3/uL (150-450); WHITE BLOOD COUNT 9.2 10^3/uL (4.0-10.0)
[2021-08-31 15:35] LABS: INR 0.94
[2021-08-31 15:36] LABS: PARTIAL THROMBOPLASTIN TIME 32.1 SECONDS (25.9-37.0)
[2021-08-31 15:39] LABS: ALBUMIN 3.3 GM/DL (3.2-5.2); ALT/SGPT 39 U/L (12-78); BILIRUBIN,TOTAL 0.5 MG/DL (0.2-1.0); BLOOD UREA NITROGEN 10 MG/DL (7-18); CALCIUM LEVEL 8.8 MG/DL (8.5-10.1); CARBON DIOXIDE LEVEL 27 MEQ/L (21-32); CHLORIDE LEVEL 103 MEQ/L (98-107); CREATININE FOR GFR 0.67 MG/DL (0.55-1.30); GLOMERULAR FILTRATION RATE > 60.0 (>58); GLUCOSE, FASTING 105 MG/DL (70-100); NT-PRO BNP 476 PG/ML (<125); POTASSIUM SERUM 4.1 MEQ/L (3.5-5.1); SODIUM LEVEL 137 MEQ/L (136-145); TOTAL PROTEIN 6.7 GM/DL (6.4-8.2)
[2021-08-31 15:51] LABS: HEMOGLOBIN A1c 5.5 %
== END ==
LOC: M PLALAB 13:25
PROVIDERS: ATTEND Physician Assistant Medical
DX: R73.01 Impaired fasting glucose (principal)

== ENCOUNTER → 2022-01-26 | Outpatient (REF) | payer BC ==
[2022-01-26 17:36] LABS: HEMATOCRIT 41.2 % (36.0-47.0); HEMOGLOBIN 13.4 g/dl (12.0-15.5); MEAN CORPUSCULAR HEMOGLOBIN 30.5 pg (27.0-33.0); MEAN CORPUSCULAR HGB CONC 32.5 g/dl (32.0-36.5); MEAN CORPUSCULAR VOLUME 93.6 fl (80.0-96.0); PLATELET COUNT, AUTOMATED 286 10^3/uL (150-450); WHITE BLOOD COUNT 9.2 10^3/uL (4.0-10.0)
[2022-01-26 18:12] LABS: ALBUMIN 3.5 GM/DL (3.2-5.2); ALT/SGPT 41 U/L (12-78); BILIRUBIN,TOTAL 0.4 MG/DL (0.2-1.0); BLOOD UREA NITROGEN 7 MG/DL (7-18); CALCIUM LEVEL 8.6 MG/DL (8.5-10.1); CARBON DIOXIDE LEVEL 27 MEQ/L (21-32); CHLORIDE LEVEL 100 MEQ/L (98-107); CHOLESTEROL LEVEL 109 MG/DL (<200); CHOLESTEROL RISK RATIO 2.868 (<5); CREATININE FOR GFR 0.59 MG/DL (0.55-1.30); GLOMERULAR FILTRATION RATE > 60.0 (>58); GLUCOSE, FASTING 75 MG/DL (70-100); HDL CHOLESTEROL 38 MG/DL (>40); LDL CHOLESTEROL 53 MG/DL (<100); NON-HDL-C 71 MG/DL; NT-PRO BNP 289 PG/ML (<125); SODIUM LEVEL 134 MEQ/L (136-145); TRIGLYCERIDES LEVEL 89 MG/DL (<150)
== END ==
LOC: M SFHCCLAY 14:23
PROVIDERS: ATTEND Nurse Practitioner Family
DX: I50.9 Heart failure, unspecified (principal); I11.0 Hypertensive heart disease with heart failure

== ENCOUNTER → 2022-01-28 | Outpatient (CLI) | payer BC | LOC: M WHC 12:39 | PROVIDERS: ATTEND Physician Assistant Medical | DX: Z12.31 Encounter for screening mammogram for malignant neoplasm of breast (principal) ==

== ENCOUNTER → 2022-06-11 | Outpatient (CLI) | payer BC ==
[2022-06-11 13:57] LABS: BASO # 0.1 10^3/uL (0.0-0.2); BASO % 0.7 % (0.0-1.0); EOS # 0.1 10^3/uL (0.0-0.5); EOS % 1.5 % (0.0-3.0); HEMATOCRIT 39.5 % (36.0-47.0); HEMOGLOBIN 12.9 g/dl (12.0-15.5); LYMPH # 2.5 10^3/uL (1.5-5.0); MEAN CORPUSCULAR HEMOGLOBIN 30.7 pg (27.0-33.0); MEAN CORPUSCULAR HGB CONC 32.7 g/dl (32.0-36.5); MONO # 0.5 10^3/uL (0.0-0.8); MONO % 5.8 % (2.0-8.0); NEUTROPHILS # 5.4 10^3/uL (1.5-8.5); NEUTROPHILS % 62.8 % (36.0-66.0); PLATELET COUNT, AUTOMATED 257 10^3/uL (150-450); WHITE BLOOD COUNT 8.6 10^3/uL (4.0-10.0)
[2022-06-11 14:09] LABS: HEMATOCRIT 39.3 % (36.0-47.0)
[2022-06-11 14:36] LABS: ALBUMIN 3.3 G/DL (3.2-5.2); ALKALINE PHOSPHATASE 106 U/L (46-116); ALT/SGPT 21 U/L (7.0-40); AST/SGOT < 8 U/L (<34); BILIRUBIN,TOTAL 0.6 MG/DL (0.3-1.2); BLOOD UREA NITROGEN 8 MG/DL (9-23); CALCIUM LEVEL 8.6 MG/DL (8.5-10.1); CARBON DIOXIDE LEVEL 31 MMOL/L (20-31); CHLORIDE LEVEL 105 MMOL/L (98-107); CREATININE FOR GFR 0.69 MG/DL (0.55-1.30); GLOMERULAR FILTRATION RATE > 60.0 (>58); GLUCOSE, FASTING 77 MG/DL (60-100); IRON (FE) 99 UG/DL (50-170); MAGNESIUM LEVEL 1.9 MG/DL (1.8-2.4); PERCENT SATURATION 34.4 % (13.2-45.0); POTASSIUM SERUM 4.4 MMOL/L (3.5-5.1); SODIUM LEVEL 140 MMOL/L (136-145); TOTAL IRON BINDING CAPACITY 288 UG/DL (250-425); TOTAL PROTEIN 6.2 G/DL (5.7-8.2)
[2022-06-11 14:37] LABS: VITAMIN B12 LEVEL 1046 PG/ML (211-911)
[2022-06-11 14:38] LABS: TOTAL 25(OH) VITAMIN D 38.7 NG/ML (20.0-100.0)
[2022-06-11 14:39] LABS: FERRITIN 60.2 NG/ML (7.3-270.7)
[2022-06-11 15:46] LABS: HEMOGLOBIN A1c 4.9 % (4.0-6.0)
== END ==
LOC: M PLALAB 11:37
PROVIDERS: ATTEND Physician Assistant Surgical
DX: K91.2 Postsurgical malabsorption, not elsewhere classified (principal)

== ENCOUNTER → 2022-07-29 | Outpatient (REF) | payer BC | LOC: M PLALAB 17:20 | PROVIDERS: ATTEND Nurse Practitioner Family | DX: Z53.9 Procedure and treatment not carried out, unspecified reason (principal) ==

== ENCOUNTER → 2023-01-06 | Outpatient (CLI) | payer BC ==
[2023-01-06 10:48] LABS: BASO # 0.1 10^3/uL (0.0-0.2); BASO % 0.6 % (0.0-1.0); EOS # 0.2 10^3/uL (0.0-0.5); EOS % 2.2 % (0.0-3.0); HEMATOCRIT 37.9 % (36.0-47.0); HEMOGLOBIN 12.3 g/dl (12.0-15.5); LYMPH # 4.5 10^3/uL (1.5-5.0); LYMPH % 42.3 % (24.0-44.0); MEAN CORPUSCULAR HEMOGLOBIN 30.9 pg (27.0-33.0); MEAN CORPUSCULAR HGB CONC 32.5 g/dl (32.0-36.5); MEAN CORPUSCULAR VOLUME 95.2 fl (80.0-96.0); MONO # 0.6 10^3/uL (0.0-0.8); MONO % 5.3 % (2.0-8.0); NEUTROPHILS # 5.3 10^3/uL (1.5-8.5); NEUTROPHILS % 49.4 % (36.0-66.0); PLATELET COUNT, AUTOMATED 266 10^3/uL (150-450); RED BLOOD COUNT 3.98 10^6/uL (4.00-5.40); WHITE BLOOD COUNT 10.7 10^3/uL (4.0-10.0)
[2023-01-06 10:55] LABS: ALBUMIN 3.6 G/DL (3.2-5.2); ALKALINE PHOSPHATASE 111 U/L (46-116); ALT/SGPT 22 U/L (7.0-40); AST/SGOT 12 U/L (<34); BILIRUBIN,TOTAL 0.3 MG/DL (0.3-1.2); BLOOD UREA NITROGEN 9 MG/DL (9-23); CALCIUM LEVEL 8.7 MG/DL (8.5-10.1); CARBON DIOXIDE LEVEL 29 MMOL/L (20-31); CHLORIDE LEVEL 105 MMOL/L (98-107); CREATININE FOR GFR 0.64 MG/DL (0.55-1.30); GLOMERULAR FILTRATION RATE > 60.0 (>58); GLUCOSE, FASTING 87 MG/DL (60-100); IRON (FE) 60 UG/DL (50-170); MAGNESIUM LEVEL 1.9 MG/DL (1.8-2.4); PERCENT SATURATION 19.6 % (13.2-45.0); PHOSPHORUS LEVEL 3.7 MG/DL (2.5-4.9); POTASSIUM SERUM 3.7 MMOL/L (3.5-5.1); SODIUM LEVEL 139 MMOL/L (136-145); TOTAL IRON BINDING CAPACITY 306 UG/DL (250-425); TOTAL PROTEIN 6.5 G/DL (5.7-8.2)
[2023-01-06 10:57] LABS: FERRITIN 59.4 NG/ML (7.3-270.7)
[2023-01-06 10:58] LABS: VITAMIN B12 LEVEL 1233 PG/ML (211-911)
[2023-01-06 11:14] LABS: HEMOGLOBIN A1c 5.1 % (4.0-6.0)
== END ==
LOC: M PLALAB 07:49
PROVIDERS: ATTEND Physician Assistant Surgical
DX: K91.2 Postsurgical malabsorption, not elsewhere classified (principal); E55.9 Vitamin D deficiency, unspecified; Z98.84 Bariatric surgery status; Z86.39 Personal history of other endocrine, nutritional and metabolic disease

== ENCOUNTER → 2023-05-19 | Outpatient (CLI) | payer BC ==
[~2023-05-19] MED LIST changes: +CEFD1CAP9 PO; -CEFD300C41 PO
== END ==
LOC: M WHC 08:26
PROVIDERS: ATTEND Nurse Practitioner Family
DX: Z12.31 Encounter for screening mammogram for malignant neoplasm of breast (principal)

== ENCOUNTER → 2023-11-23 | Outpatient (CLI) | payer BC | LOC: M SLEEP HO 10:29 | PROVIDERS: ATTEND Nurse Practitioner Adult Health | DX: G47.30 Sleep apnea, unspecified (principal) ==

== ENCOUNTER → 2024-02-28 | Outpatient (REF) | payer BC ==
[2024-02-28 11:57] LABS: HEMOGLOBIN 13.4 g/dl (12.0-15.5); MEAN CORPUSCULAR HGB CONC 33.5 g/dl (32.0-36.5); MEAN CORPUSCULAR VOLUME 95.5 fl (80.0-96.0); PLATELET COUNT, AUTOMATED 264 10^3/uL (150-450); RED BLOOD COUNT 4.19 10^6/uL (4.00-5.40); WHITE BLOOD COUNT 8.9 10^3/uL (4.0-10.0)
[2024-02-28 12:00] LABS: IRON (FE) 116 UG/DL (50-170); PERCENT SATURATION 34.3 % (13.2-45.0); TOTAL IRON BINDING CAPACITY 338 UG/DL (250-425); VITAMIN B12 LEVEL 1873 PG/ML (211-911)
[2024-02-28 12:01] LABS: ALBUMIN 3.4 G/DL (3.2-5.2); ALKALINE PHOSPHATASE 115 U/L (35-104); ALT/SGPT 25 U/L (7.0-40); AST/SGOT 19 U/L (<34); BILIRUBIN,TOTAL 0.6 MG/DL (0.3-1.2); BLOOD UREA NITROGEN 8 MG/DL (9-23); CALCIUM LEVEL 9.3 MG/DL (8.5-10.1); CARBON DIOXIDE LEVEL 29 MMOL/L (20-31); CHLORIDE LEVEL 106 MMOL/L (98-107); CHOLESTEROL LEVEL 171 MG/DL (<200); CHOLESTEROL RISK RATIO 2.79 (<5); CREATININE FOR GFR 0.61 MG/DL (0.55-1.30); FOLATE > 24.00 NG/ML (>5.4); GLOMERULAR FILTRATION RATE > 60.0 (>58); GLUCOSE, FASTING 82 MG/DL (60-100); HDL CHOLESTEROL 61.1 MG/DL (>40); LDL CHOLESTEROL 96.1 MG/DL (<100); NON-HDL-C 109.9 MG/DL; SODIUM LEVEL 139 MMOL/L (136-145); THYROID STIMULATING HORMONE 1.867 uIU/ML (0.55-4.78); TOTAL PROTEIN 6.7 G/DL (5.7-8.2); TRIGLYCERIDES LEVEL 69 MG/DL (<150)
[2024-02-28 12:02] LABS: FERRITIN 43.4 NG/ML (7.3-270.7)
[2024-02-28 12:08] LABS: HEMOGLOBIN A1c 5.2 % (4.0-6.0)
== END ==
LOC: M SFHCCLAY 08:37
PROVIDERS: ATTEND Nurse Practitioner Family
DX: Z98.84 Bariatric surgery status (principal); I10 Essential (primary) hypertension; E78.00 Pure hypercholesterolemia, unspecified; F33.2 Major depressive disorder, recurrent severe without psychotic features; F41.9 Anxiety disorder, unspecified; I50.9 Heart failure, unspecified

== ENCOUNTER 2025-04-21 09:56 | Emergency (ER) | payer OTHER, SELFPAY ==
[~2025-04-21] VITALS: Ht 165.1 cm; Wt 76.6 kg
[~2025-04-21 09:56] MED LIST changes: +TOPI-256 PO; -TOPI25TA10 PO
[2025-04-21 10:59] LABS: BASO # 0.0 10^3/uL (0.0-0.2); BASO % 0.5 % (0.0-1.0); EOS # 0.1 10^3/uL (0.0-0.5); EOS % 1.2 % (0.0-3.0); LYMPH # 2.0 10^3/uL (1.5-5.0); LYMPH % 23.2 % (24.0-44.0); MONO # 0.4 10^3/uL (0.0-0.8); MONO % 4.3 % (2.0-8.0); NEUTROPHILS # 5.9 10^3/uL (1.5-8.5); NEUTROPHILS % 70.6 % (36.0-66.0); PLATELET COUNT, AUTOMATED 271 10^3/uL (150-450)
[2025-04-21] MEDS: NS 500 ML IV ONE (11:13)
[2025-04-21 11:27] LABS: ALT/SGPT 32 U/L (7.0-40); AST/SGOT 32 U/L (<34); CALCIUM LEVEL 8.9 MG/DL (8.5-10.1); CARBON DIOXIDE LEVEL 28 MMOL/L (20-31); CHLORIDE LEVEL 103 MMOL/L (98-107); CK-MB VALUE MASS < 1.0 NG/ML (<3.6); CREATININE FOR GFR 0.58 MG/DL (0.55-1.30); GLOMERULAR FILTRATION RATE > 90.0 (>58); POTASSIUM SERUM 3.6 MMOL/L (3.5-5.1); SODIUM LEVEL 140 MMOL/L (136-145)
[2025-04-21 11:28] LABS: CPK CREATINE PHOSPHOKINASE 33 U/L (34-145)
[2025-04-21 12:18] LABS: CK-MB VALUE MASS < 1.0 NG/ML (<3.6)
[2025-04-21 12:19] LABS: CPK CREATINE PHOSPHOKINASE 28 U/L (34-145)
[2025-04-21 12:56] VITALS: BP 124/73; TEMP 98.2; O2SAT 100
== END 2025-04-21 12:58 | disposition home or self-care (01) ==
LOC: M ED 09:56
DX: R55 Syncope and collapse (principal); S82.432A Displaced oblique fracture of shaft of left fibula, initial encounter for closed fracture; X58.XXXA Exposure to other specified factors, initial encounter; M77.32 Calcaneal spur, left foot; I10 Essential (primary) hypertension; E78.5 Hyperlipidemia, unspecified; F32.A Depression, unspecified; F41.9 Anxiety disorder, unspecified; G47.33 Obstructive sleep apnea (adult) (pediatric); Z79.899 Other long term (current) drug therapy; Z88.2 Allergy status to sulfonamides; Z88.5 Allergy status to narcotic agent; Y92.009 Unspecified place in unspecified non-institutional (private) residence as the place of occurrence of the external cause; Y93.89 Activity, other specified; Y99.9 Unspecified external cause status